=== PATIENT | female | born 1940 | race Caucasian/White ===

== ENCOUNTER → 2016-03-13 | Outpatient (CLI) | payer OTHER ==
[~2016-03-13] MED LIST: CALCTAB5 PO; DVN80 PO; METO1TAB31 PO; MULTTAB58 PO; TAMO20TA47 PO
--- NOTE | 2016-03-13 15:00 | MAMMOGRAPHY REPORT ---
UNILATERAL RIGHT DIGITAL DIAGNOSTIC MAMMOGRAM TOMOSYNTHESIS WITH CAD: 03/13/2016 CLINICAL HISTORY: 75-year-old woman presents for first evaluation of the right breast status post tr eatment for breast cancer. She is status post lumpectomy and radiation and is currently on tamoxife n. TECHNIQUE: Right CC and MLO 2-D digital and tomosynthesis images, spot magnification right CC and M L views were obtained. Current study was also evaluated with a Computer Aided Detection (CAD) gracie mathis. COMPARISON: Comparison is made to exams dated: 08/25/2015 ultrasound biopsy, 08/25/2015 mammogram, 2015 ultrasound, and 08/20/2015 mammogram - [facility]. BREAST COMPOSITION: There are scattered areas of fibroglandular density in the right breast. FINDINGS: A linear scar marker overlies the 7:00 to 8:00 axis of the right breast. There is expecte d underlying architectural distortion and associated surgical clips. There is mild diffuse right br east skin thickening and trabecular edema. There are punctate and round microcalcifications scatter ed in the right breast. However, there is an increasingly conspicuous cluster of punctate microcalc ifications in the approximate 9:00 middle to posterior right breast. When comparing back to prior s tandard mammograms, these were likely present dating back to at least 05/22/2011. However, given th e increased conspicuity, a short interval follow-up exam including spot magnification views is recom mended to ensure stability in 6 months. No other suspicious mass, architectural distortion or cluste r of microcalcifications is seen throughout the right breast. IMPRESSION: ACR-BI-RADS CATEGORY 3: PROBABLY BENIGN 1. There are expected postsurgical and posttreatment changes in the right breast. 2. There is an increasingly conspicuous 2 mm cluster of punctate microcalcifications in the 9:00 mi ddle to posterior right breast that were likely present and unchanged dating back to 2011, therefore likely benign. However, a short interval follow-up exam including repeat spot magnification views is recommended to ensure stability in 6 months. 3. Annual left mammography will be due at that time. These results and recommendations were discussed with the patient at the time of the exam. Approximately 10% of breast cancers are not detected with mammography. A negative mammographic repor t should not delay biopsy if a clinically suggestive mass is present. Kaila Godinez M.D. ay/:03/13/2016 12:11:51 Ambulance Assistant: Marianela Figueroa, [facility] letter sent: Follow Up Recommended 3 BI-RADS Code: ACR-BI-RADS Category 3: Probably Benign
== END | disposition home or self-care (01) ==
LOC: C.MAMM 09:38
PROVIDERS: ATTEND Surgery
DX: R92.0 Mammographic microcalcification found on diagnostic imaging of breast (principal); Z85.3 Personal history of malignant neoplasm of breast; Z98.890 Other specified postprocedural states

== ENCOUNTER → 2016-07-20 | Outpatient (CLI) | payer OTHER ==
[2016-07-20 13:36] VITALS: BP 127/75; PULSE 74; TEMP 36.7; O2SAT 95
--- NOTE | 2016-07-20 14:44 | Radiation Oncology Follow-Up ---
Radiation Oncology Follow-Up Date of Visit Jul 20, 2016. 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 She underwent bilateral digital screening mammogram on 08/11/2014. There was no evidence of malignancy and a one-year screening mammogram was recommended. Therefore on 08/13/2015 patient underwent a repeat bilateral digital screening mammogram. This showed a 1.3 cm mass with associated calcifications in the right lateral breast at approximately 9:00. Spot magnification views and possible breast ultrasound were recommended for further evaluation. The remainder of the left breast and the right breast were without suspicious masses , calcifications or areas of architectural distortion. On August 19 patient underwent a unilateral right digital diagnostic mammogram and targeted right breast ultrasound. This revealed a 1.0 x 1.5 cm lobulated mass by mammogram and a 9 mm mass that was hypoechoic at the 8:30 position on ultrasound which corresponded to the mammographic mass. This lesion was at the 8:30 position 5 cm in the nipple. Targeted ultrasound of the right axilla showed morphologically normal right axillary lymph nodes without evidence of adenopathy. Patient underwent an ultrasound-guided core biopsy of the right breast mass at the 8:30 position on 08/25/2015. 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 Excisional biopsy was recommended. The cells were weakly positive for estrogen receptors with approximate 10% of the cells staining and negative for progesterone receptors and HER-2/micky overexpression. The Ki-67 proliferation index was less than 5%. Case: [id number]. Patient was subsequently seen by Dr. Rogelio Felix. He discussed treatment options with the patient. She opted for a breast conserving therapy and on 09/10/2015 he performed a right partial rest ectomy and sentinel node biopsy. The sentinel node was benign without evidence of metastatic carcinoma. The right partial mastectomy specimen confirmed a poorly differentiated malignant neoplasm. The margins were free of neoplasm. The tumor measured 1.5 cm. Additional right extra superior lateral margin was taken and was negative for in situ or invasive carcinoma. Histology showed a poorly differentiated malignant neoplasm consisting of markedly atypical cells that are predominantly spindled with some malignant giant cells. No obvious epithelial component is noted and there is no in situ disease. The tumor cells were completely negative for multiple keratins, including pankeratin, cytokeratin 903, cytokeratin 5/6, cytokeratin 7 and YOSSI. There was weak but unequivocal staining of estrogen receptor and p63. 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 Evaluation of the HER-2/micky amplification by FISH was reported as negative. The margins were negative on initial lumpectomy with tumor present 0.1 cm in the superior lateral margin. Additional tissue submitted from that margin was also negative giving inadequate final negative margin. Case: [id number]. This tissue was sent for second opinion to the [place] department of pathology. 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 SP #: [id number]. The patient is recovering well from her surgery. We were asked to see her for evaluation and discussion of the potential role of adjuvant radiation. It is for this reason the patient is seen in referral today. Her case was discussed at tumor board and it was felt that she should undergo radiation therapy. She had a CT simulation was found to be a candidate for hypo-fractionation. Radiation was completed on 12/02/2015 she received 5130 cGy. Interim History She's been doing well over this past 6 months. She previously had some discomforts in the upper quadrants of the breast. These have completely resolved. She has on tamoxifen which does cause some problems with hot flashes. She is noted no masses and no change of the axilla. She's had no swelling of her arm. She is up-to-date on mammography. She had a mammogram . This showed expected postsurgical and posttreatment changes in the right breast. There is an increased conspicuous 2 mm cluster of punctate microcalcifications in the 9:00 middle to posterior right breast that are likely present and unchanged dating back to 2011, therefore likely benign. However short-term follow-up examination including repeat spot magnification views is recommended to ensure stability in 6 months. She is on tamoxifen. Her main side effect is hot flashes. Dr. Felix advised that she follow with gynecology. She will continue to see the steel heater on a yearly basis. Allergies Coded Allergies: No Known Allergies (Unverified , 07/01/15) Home Medications Scheduled Calcium (Caltrate), 600 MG PO DAILY Metoprolol Succinate (Toprol Xl), 25 MG PO DAILY Multiple Vitamin (Multivitamin), 1 TAB PO DAILY Tamoxifen (Nolvadex), 20 MG PO DAILY Valsartan (Diovan), 1 TAB PO DAILY Review of Systems Gastrointestinal: Symptoms: WNL Oral: Symptoms: No Problems Respiratory: Symptoms: WNL Urinary: Symptoms: WNL Skin: Symptoms: No Problems Breast: Right Upper Arm Measurement: 28.4 Right Mid Arm Measurement: 23.5 Right Wrist Measurement: 14.5 Left Upper Arm Measurement: 31.0 Left Mid Arm Measurement: 25.8 Left Wrist Measurement: 16.0 Arm Dominence: Right Physical Exam Vital Signs Date Time Temp Pulse Resp B/P (MAP) Pulse Ox O2 Delivery O2 Flow Rate FiO2 07/20/16 13:36 36.7 74 16 127/75 95 Fatigue: None General Appearance: no apparent distress Eyes: normal inspection, EOMI ENT: normal ENT inspection, hearing grossly normal Neck: no adenopathy, thyroid normal Respiratory/Chest: lungs clear, no respiratory distress, no accessory muscle use Breast: Breast examination reveals well-healed incisions of the right breast. There is slight hyperpigmentation. There is very mild edema in the lower quadrants of the breast. There are no masses or tenderness and no axillary adenopathy. She has no skin retractions or nipple changes. Using the [place] score cosmesis she has a good outcome. Left breast shows no masses or tenderness no axillary adenopathy. Cardiovascular: regular rate, rhythm, no gallop, no murmur Abdomen: non tender, soft Extremities: no pedal edema Neurologic/Psychiatric: no motor/sensory deficits, alert, normal mood/affect Skin: warm/dry Additional Studies Patient: DEE DEE REMY N [facility] Rec: [id number] Address1: [address] REMY Address2: Acct ID: [id number] Date: 1940 Sex: F Ref Phy: Att Phy: Rogelio Felix M.D. Mabel Phy: Olu Martinez M.D. Inter Phy: Kaila Godinez MD [facility] Zip: [place] [address] SC: C.MAMM Report #: [id number] Bottle Hop: ALEXI Diagnosis: 6 MONTH F/U S/P BREAST CA RIGHT/BASELINE Service Date: 03/13/16 MNE: [id number] Ordering Dr: Rogelio Felix M.D. CC: Rogelio Felix M.D. CONF: DICTATED BY: Kaila Godinez MD MAMMOGRAPHY REPORT UNILATERAL RIGHT DIGITAL DIAGNOSTIC MAMMOGRAM TOMOSYNTHESIS WITH CAD: 03/13/2016 CLINICAL HISTORY: 75-year-old woman presents for first evaluation of the right breast status post treatment for breast cancer. She is status post lumpectomy and radiation and is currently on tamoxifen. TECHNIQUE: Right CC and MLO 2-D digital and tomosynthesis images, spot magnification right CC and ML views were obtained. Current study was also evaluated with a Computer Aided Detection (CAD) system. COMPARISON: Comparison is made to exams dated: 08/25/2015 ultrasound biopsy, 2015 mammogram, 08/20/2015 ultrasound, and 08/20/2015 mammogram - [facility]. BREAST COMPOSITION: There are scattered areas of fibroglandular density in the right breast. FINDINGS: A linear scar marker overlies the 7:00 to 8:00 axis of the right breast. There is expected underlying architectural distortion and associated surgical clips. There is mild diffuse right breast skin thickening and trabecular edema. There are punctate and round microcalcifications scattered in the right breast. However, there is an increasingly conspicuous cluster of punctate microcalcifications in the approximate 9:00 middle to posterior right breast. When comparing back to prior standard mammograms, these were likely present dating back to at least 05/22/2011. However, given the increased conspicuity, a short interval follow-up exam including spot magnification views is recommended to ensure stability in 6 months. No other suspicious mass, architectural distortion or cluster of microcalcifications is seen throughout the right breast. IMPRESSION: ACR-BI-RADS CATEGORY 3: PROBABLY BENIGN 1. There are expected postsurgical and posttreatment changes in the right breast. 2. There is an increasingly conspicuous 2 mm cluster of punctate microcalcifications in the 9:00 middle to posterior right breast that were likely present and unchanged dating back to 2011, therefore likely benign. However, a short interval follow-up exam including repeat spot magnification views is recommended to ensure stability in 6 months. 3. Annual left mammography will be due at that time. These results and recommendations were discussed with the patient at the time of the exam. Approximately 10% of breast cancers are not detected with mammography. A negative mammographic report should not delay biopsy if a clinically suggestive mass is present. Kaila Godinez M.D. ay/:03/13/2016 12:11:51 Waiter/Waitress Tavern: Marianela Figueroa, [facility] letter sent: Follow Up Recommended 3 BI-RADS Code: ACR-BI-RADS Category 3: Probably Benign Dictated by: Kaila Godinez MD Signed by: Kaila Godinez MD Assessment & Plan Plan: She is scheduled for next mammogram 08/16/2016. Continue follow-up with Dr. Felix and Dr. Martinez. She continues on the tamoxifen. She'll continue yearly visits with a steel heater. I suggested the use of Vitamin E for her hot flashes. 400 international units daily. We asked her to return to our office in 1 year. She may call if she has any questions or concerns in the interim. Total Time In Follow-Up I spent 20 minutes speaking to the patient and performing examination. I spent 15 minutes reviewing information in completing this note. Copy To Rogelio Felix M.D.; Olu Martinez M.D. Problem Qualifiers (1) Breast cancer of lower-inner quadrant of right female breast: Estrogen receptor status: positive Qualified Codes: C50.311 - Malignant neoplasm of lower-inner quadrant of right female breast; Z17.0 - Estrogen receptor positive status [ER+]
== END | disposition home or self-care (01) ==
LOC: C.ONC 13:25
PROVIDERS: ATTEND Physician Assistant Medical
DX: Z08 Encounter for follow-up examination after completed treatment for malignant neoplasm (principal); Z92.3 Personal history of irradiation; Z85.3 Personal history of malignant neoplasm of breast

== ENCOUNTER → 2016-08-16 | Outpatient (CLI) | payer OTHER ==
--- NOTE | 2016-08-16 13:05 | MAMMOGRAPHY REPORT ---
BILATERAL DIGITAL DIAGNOSTIC MAMMOGRAM TOMOSYNTHESIS WITH CAD: 08/16/2016 CLINICAL HISTORY: 75-year-old woman presents 1 year after treatment for right breast cancer. Bilater al mammographic evaluation. Also follow-up of a grouping of punctate microcalcifications in the appr oximate 9:00 middle to posterior right breast. TECHNIQUE: Bilateral CC and MLO 2-D digital and synthesis images, spot magnification right CC and ML views were obtained. Current study was also evaluated with a Computer Aided Detection (CAD) system. COMPARISON: Comparison is made to exams dated: 03/13/2016 mammogram, 08/25/2015 ultrasound biopsy, 2015 mammogram, 08/20/2015 ultrasound, 08/20/2015 mammogram, and 08/13/2015 mammogram - [facility]. BREAST COMPOSITION: There are scattered areas of fibroglandular density in both breasts. FINDINGS: There is mild diffuse skin thickening and trabecular edema of the right breast. Expected a rchitectural distortion and associated surgical clips in the lower outer right breast at the site of prior lumpectomy. The small grouping of punctate microcalcifications in the middle to posterior 9:00 right breast are somewhat less conspicuous comparing to the prior spot magnification ML view but lik ramon unchanged. There are no new microcalcifications in that area. These microcalcifications are mos t likely benign but repeat attention at another 6 month follow-up diagnostic mammogram is recommended . No other new suspicious mass, unexpected architectural distortion or new microcalcifications are s een bilaterally. IMPRESSION: ACR-BI-RADS CATEGORY 3: PROBABLY BENIGN Expected post-therapeutic changes in the right breast, without definite mammographic evidence of sofia gnancy bilaterally. Another six-month follow-up diagnostic right mammogram is recommended to ensure stability of a probably benign cluster of punctate microcalcifications in the 9:00 no to posterior ri ght breast and also to ensure stability after treatment. Recommend routine mammography of the left b reast in 1 year. These results and recommendations were discussed with the patient at the time of the exam. Approximately 10% of breast cancers are not detected with mammography. A negative mammographic report should not delay biopsy if a clinically suggestive mass is present. Kaila Godinez M.D. ay/:08/16/2016 11:38:31 Software Test Specialist: Jaz BROWN(R)(M), [facility] letter sent: Follow Up Recommended 3 BI-RADS Code: ACR-BI-RADS Category 3: Probably Benign
== END | disposition home or self-care (01) ==
LOC: C.MAMM 10:28
PROVIDERS: ATTEND Surgery
DX: Z12.31 Encounter for screening mammogram for malignant neoplasm of breast (principal); R92.0 Mammographic microcalcification found on diagnostic imaging of breast; Z85.3 Personal history of malignant neoplasm of breast; Z08 Encounter for follow-up examination after completed treatment for malignant neoplasm

== ENCOUNTER → 2016-09-12 | Outpatient (CLI) | payer OTHER ==
--- NOTE | 2016-09-12 17:49 | DIAGNOSTIC IMAGING REPORT ---
RIGHT FOOT MIN 3 VIEWS ROUTINE CLINICAL HISTORY: 76 years-old Female presenting with dropped weight on right foot 5 days ago, bruising over right toes, redness over great toe. TECHNIQUE: Frontal, oblique, and lateral views of the right foot were obtained. COMPARISON: None. FINDINGS: Comminuted fracture of the diaphysis of the distal phalanx of the great toe. This does not appear to extend into the interphalangeal joint. Slight lateral subluxation of the proximal phalanx of the first toe relative to the first metatarsal. No other evidence of acute fracture. IMPRESSION: 1. Extra-articular comminuted fracture of the distal phalanx of the great toe. 2. Slight subluxation of the first metatarsophalangeal joint, which may be acute or chronic. Electronically signed by: Andres Kirkland M.D. 09/12/2016 5:48 PM Dictated Date/Time: 09/12/2016 5:45 PM
== END | disposition home or self-care (01) ==
LOC: C.RAD 17:08
PROVIDERS: ATTEND Physician Assistant Medical
DX: S92.421A Displaced fracture of distal phalanx of right great toe, initial encounter for closed fracture (principal); X58.XXXA Exposure to other specified factors, initial encounter

== ENCOUNTER → 2016-10-20 | Outpatient (CLI) | payer OTHER ==
[2016-10-20 12:16] LABS: BASO % 0.4 %; BASO ABS # 0.02 K/uL (0-0.2); COMPLETE YES; EOS % 0.8 %; HEMATOCRIT 44.6 % (37-47); IG% 0.4 %; LYMPH % 31.4 %; MEAN CELL VOLUME 96.1 fL (80-100); MEAN CORPUSCULAR HGB CONC 31.2 g/dl (32-36); MEAN PLATELET VOLUME 10.7 fL (7.4-10.4); PLATELET COUNT 273 K/uL (130-400); RED BLOOD COUNT 4.64 M/uL (4.2-5.4)
[2016-10-20 12:40] LABS: ALT/SGPT 50 U/L (12-78); AST/SGOT 26 U/L (15-37); BLOOD UREA NITROGEN 18 mg/dl (7-18); CALCIUM 9.1 mg/dl (8.5-10.1); CARBON DIOXIDE 27 mmol/L (21-32); CHLORIDE 106 mmol/L (98-107); CHOLESTEROL 193 mg/dl (0-200); CREATININE 0.81 mg/dl (0.60-1.20); GLUCOSE 83 mg/dl (70-99); POTASSIUM 4.4 mmol/L (3.5-5.1); SODIUM 139 mmol/L (136-145)
[2016-10-20 12:43] LABS: ALKALINE PHOSPHATASE 36 U/L (45-117); CHOLESTEROL/HDL RATIO 3.4; HDL CHOLESTEROL 57 mg/dl; LDL CHOLESTEROL CALCULATED 96 mg/dl; TRIGLYCERIDES 200 mg/dl (0-150); VERY LOW DENSITY LIPOPROT CALC 40 mg/dl
== END | disposition home or self-care (01) ==
LOC: C.LABBFT 09:45
PROVIDERS: ATTEND Internal Medicine
DX: I10 Essential (primary) hypertension (principal); E78.00 Pure hypercholesterolemia, unspecified

== ENCOUNTER → 2016-11-22 | Outpatient (CLI) | payer OTHER | END | disposition home or self-care (01) | LOC: C.RDSM 10:39 | PROVIDERS: ATTEND Orthopaedic Surgery Sports Medicine | DX: S92.424D Nondisplaced fracture of distal phalanx of right great toe, subsequent encounter for fracture with routine healing (principal); X58.XXXD Exposure to other specified factors, subsequent encounter ==

== ENCOUNTER → 2017-01-15 | Outpatient (CLI) | payer OTHER ==
[~2017-01-15] MED LIST changes: +METO-478 PO; -METO1TAB31 PO; -TAMO20TA47 PO; +TAMO20TA9 PO
== END | disposition home or self-care (01) ==
LOC: C.PAPS 17:46
PROVIDERS: ATTEND Obstetrics & Gynecology
DX: Z12.4 Encounter for screening for malignant neoplasm of cervix (principal)

== ENCOUNTER → 2017-02-15 | Outpatient (CLI) | payer OTHER ==
--- NOTE | 2017-02-15 13:46 | MAMMOGRAPHY REPORT ---
UNILATERAL RIGHT DIGITAL DIAGNOSTIC MAMMOGRAM TOMOSYNTHESIS WITH CAD: 02/15/2017 CLINICAL HISTORY: History right breast cancer status post lumpectomy August 2015 and radiation therapy. The patient reports no current complaints. TECHNIQUE: Breast tomosynthesis in addition to standard 2D mammography was performed. Current study was also evaluated with a Computer Aided Detection (CAD) system. Right CC and MLO 2-D and tomosynthe sis images and spot magnification right cc and ML views were obtained. COMPARISON: Comparison is made to exams dated: 08/16/2016 mammogram, 03/13/2016 mammogram, 08/25/2015 ma mmogram, 08/20/2015 ultrasound, 08/20/2015 mammogram, and 08/13/2015 mammogram - [facility]. BREAST COMPOSITION: There are scattered areas of fibroglandular density in the right breast. FINDINGS: Again noted are post surgical changes in the right central breast from prior lumpectomy, in cluding stable density, architectural distortion, and surgical clips at the lumpectomy bed. Spot mag nification views of the lumpectomy bed demonstrate a few scattered punctate benign-appearing calcific ations. The small 1 mm cluster of punctate benign-appearing calcifications in the right upper outer quadrant is stable on spot magnification views dating back to February 2016 and is stable on full fiel d views dating back to the 2007 exam; the long-term stability confirms benignity. The remainder of t he right breast is stable compared to prior exams, without suspicious masses, calcifications, or area s of architectural distortion noted. IMPRESSION: ACR-BI-RADS CATEGORY 3: PROBABLY BENIGN Stable posttreatment changes in the right breast, without mammographic evidence of malignancy in the right breast. Recommend bilateral diagnostic tomosynthesis mammograms in 6 months, to reevaluate the right breast posttreatment changes and for routine mammography of the left breast. The patient has been verbally notified of the results. Approximately 10% of breast cancers are not detected with mammography. A negative mammographic report should not delay biopsy if a clinically suggestive mass is present. Bernarda Olmstead M.D. /:02/15/2017 11:31:54 Buyers' Agent: Nikki BROWN(Camacho)(Pietro), [facility] letter sent: Personal History 3 BI-RADS Code: ACR-BI-RADS Category 3: Probably Benign
== END | disposition home or self-care (01) ==
LOC: C.MAMM 10:57
PROVIDERS: ATTEND Surgery
DX: Z85.3 Personal history of malignant neoplasm of breast (principal); Z08 Encounter for follow-up examination after completed treatment for malignant neoplasm; Z92.3 Personal history of irradiation

== ENCOUNTER → 2017-02-22 | Outpatient (CLI) | payer OTHER | END | disposition home or self-care (01) | LOC: C.RDSM 10:52 | PROVIDERS: ATTEND Orthopaedic Surgery Sports Medicine | DX: Z09 Encounter for follow-up examination after completed treatment for conditions other than malignant neoplasm (principal) ==

== ENCOUNTER 2021-07-18 07:03 | Observation (INO) ==
--- NOTE | 2021-07-18 07:25 | Emergency Department Note ---
Impression & Plan Atypical chest pain, Hypertension ED Provider Note NAME: DEE DEE REMY AGE: 80 SEX: F : 1940 ARRIVES VIA: Walk-In INFORMANT: [Patient][, ] ED PROVIDER(S): [Pedro Pablo Gonzalez MD] Chief Complaint: Chest and arm pain HPI: Patient presents due to concern for left-sided chest discomfort and associated arm pain. Patient states this began around 530 this morning and she awoke the symptoms from sleep. Patient describes it as a 2 out of 10 and does not describe it as pain but a discomfort. The patient also has discomfort in the left upper extremity. The patient is right-hand dominant. Patient denies any shortness of breath. The patient did have a recent trip to [place] via car for her granddaughters graduation from medical school. She is to attend [employer]. The patient states that she has no prior history of heart or lung disease. Patient states that occasionally she feels as though she needs to take a big deep breath. The patient denies any smoking history. No history of DVT or PE. No recent hospitalizations or surgeries denies any calf pain or leg swelling. The patient did take a baby aspirin this morning after her symptoms began but does not know if this helped or improved her symptoms at all. Patient denies any overt exertional symptoms vomiting or diaphoresis. The patient did have mild upset stomach. ROS: See HPI for pertinent positives and negatives. A total of 10 systems were reviewed and otherwise negative. Past medical history: See below Surgical history: See below Social history: See below Physical Exam: GENERAL: NAD, [wearing a mask,] non-toxic. EYE EXAM: Normal conjunctiva. PERRL, no anisocoria and EOM's grossly intact w/o pain. [OROPHARYNX: Moist mucus membranes. Grossly normal dentition. ] NECK: Supple, no nuchal rigidity, no adenopathy, non-tender. No signs of meningismus. Chest: No reproducible chest wall pain LUNGS: Clear to auscultation. Normal chest wall mechanics. HEART: NSR, no MRG. ABDOMEN: Abdomen soft, non-tender, normo-active bowel sounds, no masses, no rebound or guarding. BACK: No CVA TTP. SKIN: No rashes and no bruising. UPPER EXTREMITIES: Upper extremities are grossly normal. No reproducible left upper extremity pain or deformity, compartments are soft neurovascular intact distally. LOWER EXTREMITIES: Grossly normal, no edema. NEURO EXAM: A&O x3, cranial nerves II-XII grossly intact, normal speech, moves a ll 4 extremities on command w/o issue. No sensory deficits Differential diagnoses: Cardiac ischemia, aortic dissection, pulmonary embolism, pneumothorax, pneumonia, pericarditis, myocarditis, esophageal rupture, GERD, cholecystitis, pancreatitis, musculoskeletal, as well as other pathologies. Course: Patient was seen and evaluated the bedside. Full history physical exam was performed. [EKG interpreted by me] Sinus rhythm, rate of 74, normal intervals, normal axis, Q waves in 3 and aVF, no obvious ST elevations. Imaging Studies: See Below [Cardiac monitoring: An order was placed for continuous cardiac monitoring. The monitor shows a rate of 77 with sinus rhythm.] MDM: Patient was seen due to concern for chest pain and arm pain. Blood work was obtained along with an EKG troponin and chest x-ray. The patient was treated symptomatically with the rest of a full dose aspirin nitro and Tylenol help avoid headache. Patient blood pressure was elevated and ordered home dose metoprolol. Blood work shows normal white count H&H and platelet count. Kidney function is unremarkable. Patient's initial troponin is negative with no obvious EKG changes. Heart score of 4 deemed moderate risk. After further discussion the patient the patient is agreeable to further observation and treatment. I did speak with the on-call hospitalist Dr. Roberts and the patient was admitted to the medicine service. Of note the patient's repeat troponin was elevated after the patient had been admitted. Past Med/Surg History Medical History (Updated 07/18/21 @ 13:47 by Pedro Pablo Gonzalez MD) Breast cancer of lower-inner quadrant of right female breast (08/25/15) Cataract Cervical polyp Dermatitis Fall at home Foot injury Herpes zoster Hypercholesterolemia Hypertension Mammogram abnormal Memory loss Oral ulcer Seborrheic dermatitis of scalp Thickened endometrium Urinary tract infection Surgical History History of breast biopsy History of cataract surgery History of colonoscopy History of dilatation and curettage D&C, Hysteroscopy, Polypectomy using Myosure (cervical and endometrial polyp) History of partial mastectomy of right breast History of tonsillectomy History of tooth extraction Family History Denies family history of Ovarian cancer Prostate cancer Myocardial infarction Breast cancer Colorectal cancer Social History Smoking Status: Never smoker Second Hand Exposure: No; Do You Dip or Chew Tobacco: No; Tobacco Cessation Education Requested by Patient: No Hx Alcohol Use: No Hx Substance Use: No Preferred Language: Maltese Communication Ability: Effective Visual Impairment: No Limitations Hearing Ability: Normal 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: No Beliefs That Will Affect Care: None marital status: Current Living Situation: Spouse Current Living Situation Comment: caregiver for , next door to son current occupational status: retired Other Information That Helps Us Care for You: No Feels Safe at Home: Yes Safety Concerns: Feels Safe At This Time Childhood Exposure to Second-Hand Smoke: No Dental Care, Regularly: Yes Physical Activity Frequency: 1-2 Times per Week Physical Activity Frequency Comment: walking, 30 minutes Seatbelt Use: always Sunscreen Use: No Assistive Devices: Glasses Allergies Allergies Allergy/AdvReac Type Severity Reaction Status Date / Time No Known Allergies Allergy Verified 12/15/20 07:37 Home Meds Home Medications Medication Instructions Recorded Confirmed multivitamin (Multiple Vitamins) 1 tab PO QAM 12/30/17 12/15/20 calcium carbonate 600 mg-vitamin 1 tab PO DAILY tab 11/21/18 12/15/20 D3 5 mcg (200 unit) tablet anastrozole 1 mg tablet 1 mg PO DAILY 07/17/19 12/15/20 Previous Rx's Medication Instructions Recorded metoprolol tartrate 25 mg tablet 25 mg PO DAILY #90 tab 06/07/20 losartan 50 mg tablet 50 mg PO DAILY #90 tab 01/25/21 Results & Data (ED) Vital Signs Vital Signs - 24 hr 07/18/21 07:18 07/18/21 07:27 07/18/21 07:30 Temperature 36.9 C Temperature Source Oral Pulse Rate 76 76 71 Pulse Rate [Left] Pulse Rate from SpO2 Sensor 76 71 Pulse Rhythm [Left] Pulse Strength [Left] Respiratory Rate 20 17 19 Respiratory Effort / Characteristics Non-Labored Spontaneous Respiratory Depth Normal Respiratory Pattern Regular Blood Pressure 183/92 H Blood Pressure [Left Arm] Blood Pressure Mean 122 Blood Pressure Mean [Left Arm] Blood Pressure Position [Left Arm] Pulse Oximetry 99 98 100 Oxygen Delivery Method Room Air Sepsis Recent Fever Within 48 Hours No Sepsis New/Unexplained Change in Mental Status N/A Sepsis Action Taken by Nursing No Action Required 07/18/21 08:00 07/18/21 08:30 07/18/21 09:00 Temperature Temperature Source Pulse Rate 67 66 66 Pulse Rate [Left] Pulse Rate from SpO2 Sensor 67 66 Pulse Rhythm [Left] Pulse Strength [Left] Respiratory Rate 14 19 25 H Respiratory Effort / Characteristics Respiratory Depth Respiratory Pattern Blood Pressure 171/88 H 192/74 H 187/83 H Blood Pressure [Left Arm] Blood Pressure Mean 115 113 117 Blood Pressure Mean [Left Arm] Blood Pressure Position [Left Arm] Pulse Oximetry 99 97 Oxygen Delivery Method Sepsis Recent Fever Within 48 Hours Sepsis New/Unexplained Change in Mental Status Sepsis Action Taken by Nursing 07/18/21 09:18 07/18/21 09:30 07/18/21 10:00 Temperature Temperature Source Pulse Rate 70 69 69 Pulse Rate [Left] 68 Pulse Rate from SpO2 Sensor 69 70 68 Pulse Rhythm [Left] Regular Pulse Strength [Left] Normal Respiratory Rate 20 19 21 Respiratory Effort / Characteristics Non-Labored Respiratory Depth Normal Respiratory Pattern Regular Blood Pressure 188/84 H 162/82 H 165/82 H Blood Pressure [Left Arm] 188/84 H Blood Pressure Mean 118 108 109 Blood Pressure Mean [Left Arm] 118 Blood Pressure Position [Left Arm] Lying Pulse Oximetry 99 94 94 Oxygen Delivery Method Room Air Sepsis Recent Fever Within 48 Hours Sepsis New/Unexplained Change in Mental Status Sepsis Action Taken by Nursing 07/18/21 10:30 Temperature Temperature Source Pulse Rate 67 Pulse Rate [Left] Pulse Rate from SpO2 Sensor 67 Pulse Rhythm [Left] Pulse Strength [Left] Respiratory Rate 20 Respiratory Effort / Characteristics Respiratory Depth Respiratory Pattern Blood Pressure 154/81 H Blood Pressure [Left Arm] Blood Pressure Mean 105 Blood Pressure Mean [Left Arm] Blood Pressure Position [Left Arm] Pulse Oximetry 96 Oxygen Delivery Method Sepsis Recent Fever Within 48 Hours Sepsis New/Unexplained Change in Mental Status Sepsis Action Taken by Intermediate Medications Current Medication List: was personally reviewed by me Laboratory Data Attestation: I reviewed the patient's lab results. Result diagrams: 07/18/21 07:55 07/18/21 08:53 Lab Results 07/18/21 07/18/21 07/18/21 Range/Units 07:55 07:55 07:55 WBC 7.36 (4.8-10.8) K/uL RBC 4.47 (4.2-5.4) M/uL Hgb 13.6 (12.0-16.0) g/dL Hct 42.1 (37-47) % MCV 94.2 (80-100) fL MCH 30.4 (25-34) pg MCHC 32.3 (32-36) g/dL RDW Std Deviation 42.6 (36.4-46.3) fL RDW Coeff of [place] 12.4 (11.5-14.5) % Plt Count 295 (130-400) K/uL MPV 10.5 H (7.4-10.4) fL Immature Gran % (Auto) 0.4 % Neut % (Auto) 72.9 % Lymph % (Auto) 16.8 % [place] % (Auto) 9.1 % Eos % (Auto) 0.7 % Baso % (Auto) 0.1 % Neut # (Auto) 5.36 (1.4-6.5) K/uL Lymph # (Auto) 1.24 (1.2-3.4) K/uL [place] # (Auto) 0.67 H (0.11-0.59) K/uL Eos # (Auto) 0.05 (0-0.5) K/uL Baso # (Auto) 0.01 (0-0.2) K/uL Immature Gran # (Auto) 0.03 H (0.00-0.02) K/uL ESR (0-30) mm/hr Sodium 138 (136-145) mmol/L Potassium TNP Chloride 106 (98-107) mmol/L Carbon Dioxide 24 (21-32) mmol/L Anion Gap 8 (3-11) BUN 15 (6-23) mg/dl Creatinine 0.80 (0.6-1.2) mg/dl Est Cr Clr Drug Dosing 49.0 ml/min Est GFR ( Amer) 80.7 ml/min Est GFR (Non-Af Amer) 69.6 ml/min BUN/Creatinine Ratio 18.8 (10-20) Glucose 102 H (70-99(Fasting)) mg/dl Calcium 9.5 (8.5-10.1) mg/dl Magnesium 2.0 (1.7-2.4) mg/dl Total Bilirubin 0.6 (0.2-1.0) mg/dl AST TNP ALT 15 (7-52) U/L Alkaline Phosphatase 40 (34-104) U/L Troponin I High Sens 5.7 (0-14) pg/ml C-Reactive Protein (0-0.5) mg/dl B-Natriuretic Peptide (0-100) pg/ml Total Protein 6.9 (6.0-8.3) gm/dl Albumin 4.2 (3.4-5.0) gm/dl Globulin 2.7 (2.5-4.0) gm/dl Albumin/Globulin Ratio 1.6 (0.9-2) Lipase 36 (11-82) U/L SARS-CoV-2, RNA, NAAT (NEGATIVE) 07/18/21 07/18/21 07/18/21 Range/Units 07:55 08:30 08:53 WBC (4.8-10.8) K/uL RBC (4.2-5.4) M/uL Hgb (12.0-16.0) g/dL Hct (37-47) % MCV (80-100) fL MCH (25-34) pg MCHC (32-36) g/dL RDW Std Deviation (36.4-46.3) fL RDW Coeff of [place] (11.5-14.5) % Plt Count (130-400) K/uL MPV (7.4-10.4) fL Immature Gran % (Auto) % Neut % (Auto) % Lymph % (Auto) % [place] % (Auto) % Eos % (Auto) % Baso % (Auto) % Neut # (Auto) (1.4-6.5) K/uL Lymph # (Auto) (1.2-3.4) K/uL [place] # (Auto) (0.11-0.59) K/uL Eos # (Auto) (0-0.5) K/uL Baso # (Auto) (0-0.2) K/uL Immature Gran # (Auto) (0.00-0.02) K/uL ESR 9 (0-30) mm/hr Sodium (136-145) mmol/L Potassium 4.5 Chloride (98-107) mmol/L Carbon Dioxide (21-32) mmol/L Anion Gap (3-11) BUN (6-23) mg/dl Creatinine (0.6-1.2) mg/dl Est Cr Clr Drug Dosing ml/min Est GFR ( Amer) ml/min Est GFR (Non-Af Amer) ml/min BUN/Creatinine Ratio (10-20) Glucose (70-99(Fasting)) mg/dl Calcium (8.5-10.1) mg/dl Magnesium (1.7-2.4) mg/dl Total Bilirubin (0.2-1.0) mg/dl AST 21 ALT (7-52) U/L Alkaline Phosphatase (34-104) U/L Troponin I High Sens (0-14) pg/ml C-Reactive Protein (0-0.5) mg/dl B-Natriuretic Peptide (0-100) pg/ml Total Protein (6.0-8.3) gm/dl Albumin (3.4-5.0) gm/dl Globulin (2.5-4.0) gm/dl Albumin/Globulin Ratio (0.9-2) Lipase (11-82) U/L SARS-CoV-2, RNA, NAAT NEGATIVE (NEGATIVE) 07/18/21 07/18/21 Range/Units 10:17 10:17 WBC (4.8-10.8) K/uL RBC (4.2-5.4) M/uL Hgb (12.0-16.0) g/dL Hct (37-47) % MCV (80-100) fL MCH (25-34) pg MCHC (32-36) g/dL RDW Std Deviation (36.4-46.3) fL RDW Coeff of [place] (11.5-14.5) % Plt Count (130-400) K/uL MPV (7.4-10.4) fL Immature Gran % (Auto) % Neut % (Auto) % Lymph % (Auto) % [place] % (Auto) % Eos % (Auto) % Baso % (Auto) % Neut # (Auto) (1.4-6.5) K/uL Lymph # (Auto) (1.2-3.4) K/uL [place] # (Auto) (0.11-0.59) K/uL Eos # (Auto) (0-0.5) K/uL Baso # (Auto) (0-0.2) K/uL Immature Gran # (Auto) (0.00-0.02) K/uL ESR (0-30) mm/hr Sodium (136-145) mmol/L Potassium Chloride (98-107) mmol/L Carbon Dioxide (21-32) mmol/L Anion Gap (3-11) BUN (6-23) mg/dl Creatinine (0.6-1.2) mg/dl Est Cr Clr Drug Dosing ml/min Est GFR ( Amer) ml/min Est GFR (Non-Af Amer) ml/min BUN/Creatinine Ratio (10-20) Glucose (70-99(Fasting)) mg/dl Calcium (8.5-10.1) mg/dl Magnesium (1.7-2.4) mg/dl Total Bilirubin (0.2-1.0) mg/dl AST ALT (7-52) U/L Alkaline Phosphatase (34-104) U/L Troponin I High Sens 37.3 H D (0-14) pg/ml C-Reactive Protein < 0.50 (0-0.5) mg/dl B-Natriuretic Peptide 22 (0-100) pg/ml Total Protein (6.0-8.3) gm/dl Albumin (3.4-5.0) gm/dl Globulin (2.5-4.0) gm/dl Albumin/Globulin Ratio (0.9-2) Lipase (11-82) U/L SARS-CoV-2, RNA, NAAT (NEGATIVE) Administered Medications Anastrozole (Anastrozole 1 Mg Tab) 1 mg PO DAILY PHIL Stop: 08/17/21 11:29 Last Admin: 07/18/21 13:18 Dose: 1 mg Documented by: [id number] Cosigned by: [id number] Enoxaparin Sodium (Enoxaparin Inj 40 Mg/0.4 Ml Syr) 40 mg SQ QAM PHIL Stop: 08/17/21 11:15 Last Admin: 07/18/21 12:42 Dose: 40 mg Documented by: [id number] Multivitamins/Minerals (Calcium 600mg + Vit D 400 Iu Tab) 1 tab PO DAILY PHIL Stop: 08/17/21 11:29 Last Admin: 07/18/21 13:18 Dose: 1 tab Documented by: [id number] Discontinued Medications Acetaminophen (Acetaminophen 325 Mg Tab) 650 mg PO NOW STA Stop: 07/18/21 07:32 Last Admin: 07/18/21 08:27 Dose: 650 mg Documented by: [id number] Aspirin (Aspirin Chew 324 Mg) 243 mg PO NOW STA Stop: 07/18/21 07:32 Last Admin: 07/18/21 08:31 Dose: 243 mg Documented by: [id number] Sodium Chloride (Nss) 500 mls @ 999 mls/hr IV .Q31M STA Stop: 07/18/21 08:01 Last Infusion: 07/18/21 09:27 Dose: 0 mls/hr Documented by: [id number] Admin: 07/18/21 08:31 Dose: 999 mls/hr Documented by: [id number] Metoprolol Tartrate (Metoprolol Tartrate 25 Mg Tab) 25 mg PO NOW STA Stop: 07/18/21 09:47 Last Admin: 07/18/21 11:03 Dose: 25 mg Documented by: [id number] Nitroglycerin (Nitroglycerin Sl 0.4 Mg/Tab Tab) 0.4 mg SL UD PRN PRN Reason: Chest Pain Stop: 08/17/21 07:30 Last Admin: 07/18/21 09:19 Dose: 0.4 mg Documented by: [id number] Imaging Data Radiologist's Impression: Chest X-Ray 07/18/21 07:31 XR chest 1V portable CLINICAL HISTORY: Atypical chest pain TECHNIQUE: Single frontal radiograph of the chest was obtained. Comparison: Comparison is made to chest radiograph 08/28/2020 FINDINGS: No lines and tubes are seen. Calcified aortic knob is seen. The lungs are clear. No evidence of pleural effusion or pneumothorax. IMPRESSION: No acute chest disease. ACT 112: Negative or not required by law. Electronically signed by: Moisés Michelle M.D. 07/18/2021 8:02 AM Discharge Plan Visit Data Chief Complaint: Chest Pain Stated Complaint: CHEST PAIN,PAIN GOING DOWN LEFT ARM ED Provider: Pedro Pablo Gonzalez Discharge Problem: Atypical chest pain, Hypertension Patient Disposition: Admitted As Inpatient Discharge Instructions Interventions: ED Discharge Assessment Last Done: 07/18/21 10:55
[2021-07-18] MEDS ORDERED: ACETAMINOPHEN 325 MG TAB PO STA (07:31)
[2021-07-18] MEDS ORDERED: ASPIRIN CHEW 324 MG PO STA (07:31)
[2021-07-18] MEDS ORDERED: SODIUM CHLORIDE 0.9% 500 ML IV STA (07:31)
[2021-07-18] MEDS ORDERED: NITROGLYCERIN SL 0.4 MG/TAB TAB SL PRN ×2 (07:31→11:16)
--- NOTE | 2021-07-18 08:05 | XRay Report ---
XR chest 1V portable CLINICAL HISTORY: Atypical chest pain TECHNIQUE: Single frontal radiograph of the chest was obtained. Comparison: Comparison is made to chest radiograph 08/28/2020 FINDINGS: No lines and tubes are seen. Calcified aortic knob is seen. The lungs are clear. No evidence of pleur al effusion or pneumothorax. IMPRESSION: No acute chest disease. ACT 112: Negative or not required by law. Electronically signed by: Moisés Michelle M.D. 07/18/2021 8:02 AM
[2021-07-18 08:09] LABS: Basophils # (auto) 0.01 K/uL (0-0.2); Basophils % (auto) 0.1 %; Eosinophils # (auto) 0.05 K/uL (0-0.5); Eosinophils % (auto) 0.7 %; Hematocrit (blood only) 42.1 % (37-47); Hemoglobin 13.6 g/dL (12.0-16.0); Immature Granulocytes # (auto) 0.03 K/uL (0.00-0.02); Immature Granulocytes % (auto) 0.4 %; Lymphocytes # (auto) 1.24 K/uL (1.2-3.4); Lymphocytes % (auto) 16.8 %; Mean Corpuscular Hemoglobin 30.4 pg (25-34); Mean Corpuscular Hgb Conc 32.3 g/dL (32-36); Mean Corpuscular Volume 94.2 fL (80-100); Mean Platelet Volume 10.5 fL (7.4-10.4); Monocytes # (auto) 0.67 K/uL (0.11-0.59); Monocytes % (auto) 9.1 %; Neutrophils # (auto) 5.36 K/uL (1.4-6.5); Neutrophils % (auto) 72.9 %; Platelet Count 295 K/uL (130-400); RDW Coefficient of Variation 12.4 % (11.5-14.5); RDW Standard Deviation 42.6 fL (36.4-46.3); Red Blood Count 4.47 M/uL (4.2-5.4); White Blood Count 7.36 K/uL (4.8-10.8)
[2021-07-18 08:33] LABS: Alanine Aminotransferase 15 U/L (7-52); Albumin Globulin Ratio 1.6 (0.9-2); Albumin Level 4.2 gm/dl (3.4-5.0); Alkaline Phosphatase 40 U/L (34-104); Anion Gap 8 (3-11); BUN Creatinine Ratio 18.8 (10-20); Bilirubin,Total 0.6 mg/dl (0.2-1.0); Blood Urea Nitrogen 15 mg/dl (6-23); Calcium 9.5 mg/dl (8.5-10.1); Carbon Dioxide 24 mmol/L (21-32); Chloride 106 mmol/L (98-107); Est GFR (African American) 80.7 ml/min; Est GFR (Non-African American) 69.6 ml/min; Globulin 2.7 gm/dl (2.5-4.0); Glucose 102 mg/dl (70-99(Fasting)); Sodium 138 mmol/L (136-145); Total Protein 6.9 gm/dl (6.0-8.3)
[2021-07-18 09:36] LABS: Potassium 4.5 mmol/L (3.5-5.1)
[2021-07-18] MEDS ORDERED: METOPROLOL TARTRATE 25 MG TAB PO STA (09:46)
[2021-07-18 10:24] LABS: Lipase 36 U/L (11-82)
[2021-07-18 10:56] LABS: C Reactive Protein < 0.50 mg/dl (0-0.5)
--- NOTE | 2021-07-18 11:05 | History & Physical Report ---
Date of Service July 18, 2021 Assessment & Plan (1) Chest pain: Plan: Chest pain at rest that awakened her from sleep - DDX: Cardiac chest pain vs. Non-cardiac chest pain vs. inflammatory vs. muscle strain (non-cardiac) - Currently this appears to be non-cardiac chest pain- Reproducible across left chest - Evaluate CRP and ESR - ECG without ST elevation/depression - CXR without acute pulmonary or musculoskeletal component - Risk factors- age, HTN, HLD - Trend HScTNI second high-sensitivity troponin went from 5.7-37.3. Out to 1600 for full evaluation following peak onset of her discomfort - ECHO to evaluate for any RWMA - Consider EST as outpatient or in AM if warranted following the above (2) Hypertension: Plan: HTN uncontrolled - She does not check her BP at home regularly- when she does she has varying results of 120-150s - Currently 168/85- trend this overnight adjust therapy if warranted or follow up with PCP - Metoprolol 25 mg PO daily - Losartan 50mg PO daily (she takes this at night) (3) Hypercholesterolemia: Plan: Last check 12/09 - CHOL 203, LDL 112, VLDL 26, Trigs, 129, HDL 65 - currently on no therapy (4) 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 Patient comest to the EMD today for complaints of left arm tingling and pain across her left chest. This woke her up this morning at around 0530. Patient states that she thought that this was secondary to her sleeping on her arm, so she waited for about 30 minutes and this did not resolve. She then called her daughter and they came to the EMD. The pain started to resolve around 0800 when she got here. The pain was along her left chest 3-5 intercostal along the front chest wall described as "just a pain" this was associated with nausea in the morning and left arm tingling , th is was NOT associated with any activity, or shortness of breath, chills fevers, vomiting or radiation in to her neck, jaw, or back. 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 She was also mowing grass this weekend (on Sunday) with push mower. She denies any chest pain or dyspnea at that time, but was fatigued afterwards. In the EMD the patient was noted to be hypertensive (she did not take her metoprolol this mornint). She had ECG performed, CXR, Routine labs to include HScTNI. She was given 324 mg ASA, and NTG, as well as her Metoprolol. Her HScTNI was negative x1 at 7:55 this morning. Repeat is pending, this repeat would be approx 6 hours from onset of discomfort. Her chest pain appears to be reproducible along the chest wall, and she reports this is the same pain that she had this morning. Will observe patient overnight, with trending of her BPs as she remains >160/80, and draw another HScTNI at 1600. She has no other neurological deficits or drift to associate with her left arm tinging. COVID test on admission is: NEGATIVE Allergies Allergy/AdvReac Type Severity Reaction Status Date / Time No Known Allergies Allergy Verified 12/15/20 07:37 Home Medications Medication Instructions Recorded Confirmed Type multivitamin (Multiple Vitamins) 1 tab PO QAM 12/30/17 12/15/20 History calcium carbonate 600 mg-vitamin 1 tab PO DAILY tab 11/21/18 12/15/20 History D3 5 mcg (200 unit) tablet anastrozole 1 mg tablet 1 mg PO DAILY 07/17/19 12/15/20 History metoprolol tartrate 25 mg tablet 25 mg PO DAILY #90 tab 06/07/20 12/15/20 Rx losartan 50 mg tablet 50 mg PO DAILY #90 tab 01/25/21 Rx Past Med/Surg History Medical History (Updated 07/18/21 @ 10:54 by KEENA Santos) Breast cancer of lower-inner quadrant of right female breast (08/25/15) Cataract Cervical polyp Dermatitis Fall at home Foot injury Herpes zoster Hypercholesterolemia Hypertension Mammogram abnormal Memory loss Oral ulcer Seborrheic dermatitis of scalp Thickened endometrium Urinary tract infection Surgical History History of breast biopsy History of cataract surgery History of colonoscopy History of dilatation and curettage D&C, Hysteroscopy, Polypectomy using Myosure (cervical and endometrial polyp) History of partial mastectomy of right breast History of tonsillectomy History of tooth extraction Family History Denies family history of Ovarian cancer Prostate cancer Myocardial infarction Breast cancer Colorectal cancer Social History Smoking Status: Never smoker Second Hand Exposure: No; Hx Alcohol Use: No Hx Substance Use: No Preferred Language: Irish Communication Ability: Effective Visual Impairment: No Limitations Hearing 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: 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 Electronics Required: No Beliefs That Will Affect Care: None marital status: Current Living Situation: Spouse current occupational status: retired Feels Safe at Home: Yes Childhood Exposure to Second-Hand Smoke: No Dental Care, Regularly: Yes Physical Activity Frequency: 1-2 Times per Week Physical Activity Frequency Comment: walking, 30 minutes Seatbelt Use: always Sunscreen Use: No Assistive Devices: None Review of Systems Review of Systems: REVIEW OF SYSTEMS: Constitutional: No fever, sweats or chills Eyes: No diplopia, no worsening or blurred vision ENT: normal hearing, no trouble swallowing Respiratory: No cough, sputum, dyspnea at rest or on exertion Cardiovascular: (+) chest pain, NO tightness or palpitations Abdomen: No pain, nausea, vomiting, diarrhea or constipation Musculoskeletal: (+) left arm tingling, No joint pain, calf pain, swelling Neurologic: No weakness, numbness/tingling, or balance problems Psychiatric: No anxiety or depression Skin: No rash or itch Physical Exam Physical Exam: PHYSICAL EXAM: General: awake, alert, no apparent distress Head: Normocephalic, atraumatic ENT: PERRL, EOMI, no pharyngeal exudate, mucous membranes moist Neuro: AAO x 3, speech clear and appropriate, strength intact bilaterally 5/5, sensation intact and equal all extremities and dermatomes, no pronator drift Chest: equal rise and fall of the chest, no accessory muscle use, no heaves or thrills, Clear to auscultation, on room air, Cardiac: Regular rate and rhythm, telemetry reviewed- NSR 60s, skin warm dry, cap refill <3 seconds, peripheral pulses +2 no JVD, no murmur, no edema GI: NABS x 4 quadrants, soft, nontender to palpation, no rebound, guarding or tenderness : Spontaneously voiding, no pain, no CVA tenderness, Extremities: Normal inspection, no peripheral edema or erythema, calfs nontender to palpation Psych: Normal mood and affect Skin: no rash or erythema Results & Data Results & Data ([facility]) Vital Signs (Past 12 Hours) Vital Signs Temp Pulse Pulse Resp BP BP Pulse Ox 07/18/21 09:30 69 19 162/82 H 94 07/18/21 09:18 70 68 20 188/84 H 188/84 H 99 07/18/21 09:00 66 25 H 187/83 H 97 07/18/21 08:30 66 19 192/74 H 07/18/21 08:00 67 14 171/88 H 99 07/18/21 07:30 71 19 100 07/18/21 07:27 76 17 98 07/18/21 07:18 36.9 C 76 20 183/92 H 99 Laboratory Results Laboratory Results - last 24 hr 07/18/21 07/18/21 07/18/21 07:55 07:55 07:55 WBC 7.36 RBC 4.47 Hgb 13.6 Hct 42.1 MCV 94.2 MCH 30.4 MCHC 32.3 RDW Std Deviation 42.6 RDW Coeff of Tawny 12.4 Plt Count 295 MPV 10.5 H Immature Gran % (Auto) 0.4 Neut % (Auto) 72.9 Lymph % (Auto) 16.8 Rock % (Auto) 9.1 Eos % (Auto) 0.7 Baso % (Auto) 0.1 Neut # (Auto) 5.36 Lymph # (Auto) 1.24 Rock # (Auto) 0.67 H Eos # (Auto) 0.05 Baso # (Auto) 0.01 Immature Gran # (Auto) 0.03 H ESR Sodium 138 Potassium TNP Chloride 106 Carbon Dioxide 24 Anion Gap 8 BUN 15 Creatinine 0.80 Est Cr Clr Drug Dosing 49.0 Est GFR ( Amer) 80.7 Est GFR (Non-Af Amer) 69.6 BUN/Creatinine Ratio 18.8 Glucose 102 H Calcium 9.5 Magnesium 2.0 Total Bilirubin 0.6 AST TNP ALT 15 Alkaline Phosphatase 40 Troponin I High Sens 5.7 C-Reactive Protein B-Natriuretic Peptide Total Protein 6.9 Albumin 4.2 Globulin 2.7 Albumin/Globulin Ratio 1.6 Lipase 36 SARS-CoV-2, RNA, NAAT 07/18/21 07/18/21 07/18/21 07:55 08:30 08:53 WBC RBC Hgb Hct MCV MCH MCHC RDW Std Deviation RDW Coeff of Tawny Plt Count MPV Immature Gran % (Auto) Neut % (Auto) Lymph % (Auto) Rock % (Auto) Eos % (Auto) Baso % (Auto) Neut # (Auto) Lymph # (Auto) Rock # (Auto) Eos # (Auto) Baso # (Auto) Immature Gran # (Auto) ESR 9 Sodium Potassium 4.5 Chloride Carbon Dioxide Anion Gap BUN Creatinine Est Cr Clr Drug Dosing Est GFR ( Amer) Est GFR (Non-Af Amer) BUN/Creatinine Ratio Glucose Calcium Magnesium Total Bilirubin AST 21 ALT Alkaline Phosphatase Troponin I High Sens C-Reactive Protein B-Natriuretic Peptide Total Protein Albumin Globulin Albumin/Globulin Ratio Lipase SARS-CoV-2, RNA, NAAT NEGATIVE 07/18/21 07/18/21 10:17 10:17 WBC RBC Hgb Hct MCV MCH MCHC RDW Std Deviation RDW Coeff of Tawny Plt Count MPV Immature Gran % (Auto) Neut % (Auto) Lymph % (Auto) Rock % (Auto) Eos % (Auto) Baso % (Auto) Neut # (Auto) Lymph # (Auto) Rock # (Auto) Eos # (Auto) Baso # (Auto) Immature Gran # (Auto) ESR Sodium Potassium Chloride Carbon Dioxide Anion Gap BUN Creatinine Est Cr Clr Drug Dosing Est GFR ( Amer) Est GFR (Non-Af Amer) BUN/Creatinine Ratio Glucose Calcium Magnesium Total Bilirubin AST ALT Alkaline Phosphatase Troponin I High Sens Pending C-Reactive Protein Pending B-Natriuretic Peptide Pending Total Protein Albumin Globulin Albumin/Globulin Ratio Lipase SARS-CoV-2, RNA, NAAT Diagnostic Findings Chest X-Ray 07/18/21 07:31 XR chest 1V portable CLINICAL HISTORY: Atypical chest pain TECHNIQUE: Single frontal radiograph of the chest was obtained. Comparison: Comparison is made to chest radiograph 08/28/2020 FINDINGS: No lines and tubes are seen. Calcified aortic knob is seen. The lungs are clear. No evidence of pleural effusion or pneumothorax. IMPRESSION: No acute chest disease. ACT 112: Negative or not required by law. Electronically signed by: Moisés Michelle M.D. 07/18/2021 8:02 AM Medications Administered Home Medications multivitamin (Multiple Vitamins) 1 tab PO QAM 12/30/17 [History Confirmed 12/15/20] calcium carbonate 600 mg-vitamin D3 5 mcg (200 unit) tablet 1 tab PO DAILY tab 11/21/18 [History Confirmed 12/15/20] anastrozole 1 mg tablet 1 mg PO DAILY 07/17/19 [History Confirmed 12/15/20] metoprolol tartrate 25 mg tablet 25 mg PO DAILY #90 tab 06/07/20 [Rx Confirmed 12/15/20] losartan 50 mg tablet 50 mg PO DAILY #90 tab 01/25/21 [Rx] Active Medications Nitroglycerin (Nitroglycerin Sl 0.4 Mg/Tab Tab) 0.4 mg SL UD PRN PRN Reason: Chest Pain Stop: 08/17/21 07:30 Last Admin: 07/18/21 09:19 Dose: 0.4 mg Documented by: Nitroglycerin (Nitroglycerin Sl 0.4 Mg/Tab Tab) 0.4 mg SL UD PRN PRN Reason: Chest Pain Stop: 08/17/21 07:30 Last Admin: 07/18/21 09:19 Dose: 0.4 mg Documented by: [id number] Discontinued Medications Acetaminophen (Acetaminophen 325 Mg Tab) 650 mg PO NOW STA Stop: 07/18/21 07:32 Last Admin: 07/18/21 08:27 Dose: 650 mg Documented by: [id number] Aspirin (Aspirin Chew 324 Mg) 243 mg PO NOW STA Stop: 07/18/21 07:32 Last Admin: 07/18/21 08:31 Dose: 243 mg Documented by: [id number] Sodium Chloride (Nss) 500 mls @ 999 mls/hr IV .Q31M STA Stop: 07/18/21 08:01 Last Infusion: 07/18/21 09:27 Dose: 0 mls/hr Documented by: [id number] Admin: 07/18/21 08:31 Dose: 999 mls/hr Documented by: [id number] ECG Additional Comments: Normal sinus rhythm Possible Left atrial enlargement Abnormal ECG When compared with ECG of 24-NANI-2008 10:08, No significant change was found Confirmed by Pierre Jones ([id number]) on 08/28/2020 9:02:54 PM Code Status & VTE Plan Code Status CODE: FULL VTE: Kevin, Lovenox 40mg Subq daily - start 07/19/21 VTE Prophylaxis Plan VTE Prophylaxis will be ordered: Yes Supervising Physician Co-Signing Physician Notes Patient was seen and examined independently I discussed the case with Goyo BRINK I reviewed pertinent past medical social family history and also the plan of care and agree with the plan of care. Patient presents with some chest wall discomfort but also some associated left arm paresthesias that she woke with this morning. Patient begin physical exercise over the weekend without exacerbation of these things but then she awoke and they were unremitting so she presented for evaluation. ER doctors heart score feels she does have some risk factors and recommended observation for trending of high-sensitivity troponins and possible risk stratification. Patient and family are in agreement with this. My evaluation she did have some minor musculoskeletal discomfort of her chest wall. I heard no murmurs clicks rubs or gallops with her heart her lungs were clear her arm had good range of motion without any peripheral neuropathy Patient will continue treatment of her risk factors with metoprolol aspirin 81 a day and losartan Patient does have a history of breast cancer however this was on the right, radiation also only in the right breast she continues on anastrozole Any exceptions will be noted below PG Care Time/CCT Total # of Minutes Spent Total Time Spent with Patient: Total time spent is greater than 50% in coordination of care (as documented) at patient's floor/unit and/or counseling patient: Coding Level of Care Code INT OBSERVATION CARE 50M LVL 2 Diagnoses Chest pain R07.9 Hypertension I10 Hypercholesterolemia E78.00 Breast cancer C50.919
[2021-07-18 11:08] LABS: Troponin I High Sensitivity 37.3 pg/ml (0-14)
[2021-07-18] MEDS ORDERED: ENOXAPARIN INJ 40 MG/0.4 ML SYR SQ SCH (11:16)
[2021-07-18] MEDS ORDERED: ACETAMINOPHEN 325 MG TAB PO PRN (11:16)
[2021-07-18] MEDS: ANASTROZOLE 1 MG TAB PO SCH (13:18)
[2021-07-18] MEDS: CALCIUM 600MG + VIT D 400 IU TAB PO SCH (13:18)
[2021-07-18] MEDS ORDERED: amLODIPine BESYLATE 5 MG TAB PO ONE (18:00)
[2021-07-18] MEDS ORDERED: Heparin IV Adult Wt-Based Low-Dose WITH Bolus Protocol IV SCH (18:14)
[2021-07-18] MEDS ORDERED: HEPARIN SOD (PORCINE) 1000 UNIT/ML IV ONE (18:26)
[2021-07-18] MEDS ORDERED: HEPARIN SODIUM/DEXTROSE 25,000 UNITS/500 ML BAG IV SCH (18:30)
[2021-07-18 19:05] LABS: Partial Thromboplastin Ratio 1.1; Partial Thromboplastin Time 29.2 Seconds (21.0-31.0); Prothrombin Time 10.6 Seconds (9.0-12.0)
[2021-07-18] MEDS: LOSARTAN POTASSIUM 50 MG TAB PO SCH (21:18)
[2021-07-19 03:03] LABS: Partial Thromboplastin Ratio 1.5; Partial Thromboplastin Time 41.9 Seconds (21.0-31.0)
[2021-07-19 07:22] LABS: Basophils # (auto) 0.01 K/uL (0-0.2); Basophils % (auto) 0.2 %; Eosinophils # (auto) 0.04 K/uL (0-0.5); Eosinophils % (auto) 0.8 %; Hematocrit (blood only) 40.8 % (37-47); Hemoglobin 13.4 g/dL (12.0-16.0); Immature Granulocytes # (auto) 0.01 K/uL (0.00-0.02); Immature Granulocytes % (auto) 0.2 %; Lymphocytes # (auto) 1.48 K/uL (1.2-3.4); Lymphocytes % (auto) 28.6 %; Mean Corpuscular Hemoglobin 30.7 pg (25-34); Mean Corpuscular Hgb Conc 32.8 g/dL (32-36); Mean Corpuscular Volume 93.6 fL (80-100); Mean Platelet Volume 10.2 fL (7.4-10.4); Monocytes # (auto) 0.47 K/uL (0.11-0.59); Monocytes % (auto) 9.1 %; Neutrophils # (auto) 3.16 K/uL (1.4-6.5); Neutrophils % (auto) 61.1 %; Platelet Count 282 K/uL (130-400); RDW Coefficient of Variation 12.3 % (11.5-14.5); Red Blood Count 4.36 M/uL (4.2-5.4); White Blood Count 5.17 K/uL (4.8-10.8)
[2021-07-19 07:45] LABS: Partial Thromboplastin Ratio 1.7
--- NOTE | 2021-07-19 07:55 | XCELERA ---
[id number]
[2021-07-19 07:56] LABS: BUN Creatinine Ratio 19.4 (10-20); Calcium 8.9 mg/dl (8.5-10.1); Chol HDL Ratio 3.4 (0-5); Creatinine Clr Calc Pharmacy 54.1 ml/min; Est GFR (African American) 91.7 ml/min; Est GFR (Non-African American) 79.1 ml/min; Magnesium 1.9 mg/dl (1.7-2.4); Troponin I High Sensitivity 196.7 pg/ml (0-14)
--- NOTE | 2021-07-19 07:57 | Electrocardiogram Report ---
Test Reason : Blood Pressure : / mmHG Vent. Rate : 074 BPM Atrial Rate : 074 BPM P-R Int : 182 ms QRS Dur : 082 ms QT Int : 386 ms P-R-T Axes : 063 -18 028 degrees QTc Int : 428 ms Normal sinus rhythm Left atrial enlargement Borderline ECG When compared with ECG of 28-AUG-2020 12:27, No significant change was found Confirmed by Julio Castillo ([id number]) on 07/19/2021 7:57:37 AM Referred By: REFERRED SELF Confirmed By:Julio Castillo
[2021-07-19 07:58] LABS: Partial Thromboplastin Time 45.7 Seconds (21.0-31.0)
[2021-07-19] MEDS: METOPROLOL TARTRATE 25 MG TAB PO SCH (07:59)
[2021-07-19] MEDS: CALCIUM 600MG + VIT D 400 IU TAB PO SCH (07:59)
[2021-07-19] MEDS: ASPIRIN 81 MG ECTAB PO SCH (07:59)
[2021-07-19] MEDS: ANASTROZOLE 1 MG TAB PO SCH (07:59)
--- NOTE | 2021-07-19 08:48 | Electrocardiogram Report ---
Test Reason : Blood Pressure : / mmHG Vent. Rate : 073 BPM Atrial Rate : 073 BPM P-R Int : 196 ms QRS Dur : 084 ms QT Int : 400 ms P-R-T Axes : 063 -22 048 degrees QTc Int : 440 ms Normal sinus rhythm Poor R wave progression, consider anterior VA vs. lead placement vs. LVH Abnormal ECG When compared with ECG of 18-JUL-2021 07:21, No significant change Confirmed by Julio Castillo ([id number]) on 07/19/2021 8:48:12 AM Referred By: REFERRED SELF Confirmed By:Julio Castillo
[2021-07-19 10:31] LABS: Partial Thromboplastin Ratio 1.3; Partial Thromboplastin Time 37.1 Seconds (21.0-31.0)
[2021-07-19] MEDS ORDERED: HEPARIN IV BOLUS 2,000 UNITS in SYRINGE 0 ML IV ONE (10:40)
--- NOTE | 2021-07-19 10:54 | Cardiology Consultation ---
Date of Consultation July 19, 2021 Assessment & Plan (1) NSTEMI (non-ST elevated myocardial infarction): (2) Hypertension: (3) Hypercholesterolemia: 80-year-old woman with vascular risk factors of age/hypertension/dyslipidemia and episode chest pain yesterday with unremarkable ECG and echocardiogram but peak and decay cardiac enzyme curve consistent with non-ST elevation myocardial infarction. She has an active elderly individual, she was using a push mower over the weekend and she had not noted any symptoms prior to awakening with chest pain yesterday. Recommended proceeding to cardiac catheterization to define coronary anatomy. Continue aspirin, additional antiplatelet agent based on cath results. Continue vasoactive regimen of amlodipine/losartan/metoprolol, consider increasing metoprolol. Currently on IV heparin, will hold this at the time of catheterization. Depending on catheterization results, likely will initiate statin as well. Further recommendations based on results of cardiac catheterization this afternoon. History of Present Illness Reason for Consultation: NSTEMI Requesting Physician: Shanika Stevenson MD Attending Physician: Shanika Stevenson MD History of Present Illness 80-year-old woman with vascular risk factors (dyslipidemia/hypertension/age) but no known cardiac history who was admitted 07/18/2021 after an episode of chest discomfort that awakened her from sleep, ECG was negative but enzymes showed peak and decay curve consistent with non-ST elevation WI. Initial discomfort was left arm "tingling" which ultimately radiated to her shoulder and chest, only associated symptom was nausea. No diaphoresis, dyspnea, palpitations, lightheadedness, presyncope, or syncope. She was brought to the ER where initial ECG and enzymes were negative, she did have an element of reproducible chest wall pain at that time. Her arm and shoulder discomfort had resolved and have not recurred since. At the time of my evaluation, she was comfortable and had no somatic complaints. Allergies Allergy/AdvReac Type Severity Reaction Status Date / Time No Known Allergies Allergy Verified 12/15/20 07:37 Home Medications Medication Instructions Recorded Confirmed Type multivitamin (Multiple Vitamins) 1 tab PO QAM 12/30/17 12/15/20 History calcium carbonate 600 mg-vitamin 1 tab PO DAILY tab 11/21/18 12/15/20 History D3 5 mcg (200 unit) tablet anastrozole 1 mg tablet 1 mg PO DAILY 07/17/19 12/15/20 History metoprolol tartrate 25 mg tablet 25 mg PO DAILY #90 tab 06/07/20 12/15/20 Rx losartan 50 mg tablet 50 mg PO DAILY #90 tab 01/25/21 Rx Patient History Medical History (Updated 07/19/21 @ 10:50 by Julio Castillo MD) Breast cancer of lower-inner quadrant of right female breast (08/25/15) Cataract Cervical polyp Dermatitis Fall at home Foot injury Herpes zoster Hypercholesterolemia Hypertension Mammogram abnormal Memory loss Oral ulcer Seborrheic dermatitis of scalp Thickened endometrium Urinary tract infection Surgical History History of breast biopsy History of cataract surgery History of colonoscopy History of dilatation and curettage D&C, Hysteroscopy, Polypectomy using Myosure (cervical and endometrial polyp) History of partial mastectomy of right breast History of tonsillectomy History of tooth extraction Family History Denies family history of Ovarian cancer Prostate cancer Myocardial infarction Breast cancer Colorectal cancer Social History Smoking Status: Never smoker Second Hand Exposure: No; Hx Alcohol Use: No Hx Substance Use: No Preferred Language: Icelandic Communication Ability: Effective Visual Impairment: No Limitations Hearing Ability: Normal 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 BP normotensive. Pulse 76 bpm and regular. Skin: no ecchymoses or generalized lesions. HEENT: unremarkable. Neck: no JVD or carotid bruits. Lungs: clear. Cardiac: regular rhythm, normal S1 and S2, no murmur or gallop. Abdomen: benign. Extremities: no edema, brisk radial and posterior tibial pulses. Neurologic: normal affect, nonfocal. Results & Data ([facility]) Vital Signs (Past 12 Hours) Vital Signs Temp Pulse Resp BP Pulse Ox 07/19/21 07:31 98.2 F 77 18 132/71 97 07/19/21 02:44 97.9 F 75 18 159/77 H 98 07/18/21 22:53 97.9 F 72 18 149/75 H 96 Laboratory Results Initial hs-troponin 5, peak hs-troponin 441, hs-troponin this morning 196. Normal CBC. Normal electrolytes, UN 14, creatinine 0.72. Magnesium 1.9. Diagnostic Findings Initial ECG showed sinus rhythm at 73 bpm with poor R wave progression, otherwise unremarkable. Compared with August 2020 ECG, no change. Additional ECGs last evening and this morning also showed sinus rhythm with poor R wave progression and were unchanged. Echocardiogram showed EF 60 to 65% with no wall motion abnormalities, she did have moderate to severe left ventricle hypertrophy. Mild mitral regurgitation, normal RVSP, mildly dilated inferior vena cava. Chest x-ray with no acute processes. Calcified aortic knob. PG Care Time/CCT Total # of Minutes Spent Total Time Spent with Patient: Total time spent is greater than 50% in coordination of care (as documented) at patient's floor/unit and/or counseling patient: Coding Level of Care Code 12945 Inpt Consult Level 4 Diagnoses NSTEMI (non-ST elevated myocardial infarction) I21.4 Hypertension I10 Hypertension type: unspecified Hypercholesterolemia E78.00 (1) Hypertension Hypertension type: unspecified Qualified Code(s): I10 - Essential (primary) hypertension
--- NOTE | 2021-07-19 12:15 | Hospitalist Progress Note ---
Date of Service July 19, 2021 Assessment & Plan (1) NSTEMI (non-ST elevated myocardial infarction): Plan: Presented with Chest pain at rest that awakened her from sleep - CRP and ESR normal - ECG without ST elevation/depression - CXR without acute pulmonary or musculoskeletal component - Risk factors- age, HTN, HLD - Trended HScTNI second high-sensitivity troponin went from 5.7-37.3 and then up further to 441 peak c/w NSTEMI----> heparin gtt was started after admission and will be held for cath - ECHO to evaluate for any RWMA was normal -lipids here are excellent but if has CAD, will need statin high intensity -Appreciate Cardio consult--> plan for cardiac cath today -Continue aspirin, additional antiplatelet agent based on cath results. -Continue vasoactive regimen of amlodipine/losartan/metoprolol, consider increasing metoprolol as per Cardiology (2) Hypertension: Plan: HTN -BPs controlled - She does not check her BP at home regularly- when she does she has varying results of 120-150s -continue Metoprolol 25 mg PO daily (tartrate only once a day)--> likely titrate up -continue Losartan 50mg PO daily (she takes this at night) -was given one dose amlodipine (3) Hypercholesterolemia: Plan: Lipids here are excellent - currently on no therapy but will likely need statin if CAD on cath (4) Breast cancer: Plan: Diagnosed 2016:- poorly differentiated - (+)ER/OH(-) treated with RTX only on the right side, and is on Anastrazole currently - continue anastrazole - further monitoring and management per outpatient team Plan: DVT proph-SCDs, heparin gtt Dispo-continued stay on tele Discussed case with Dr. Castillo Admission and Anticipated Discharge Date Admission Date: July 18, 2021 Subjective Pt feels anxious about having a cardiac cath today but is agreeable. Denies current CP, SOB, nausea. Is anxious to get back to taking care of her at home. Tele with NSR, rates 60-70s Review of Systems Review of Systems: All systems reviewed & are unremarkable except as noted in HPI & below Physical Exam Constitutional: WD/WN, vitals as above Eyes: + anicteric sclerae ENMT: external ear and nose normal, oropharynx normal Neck: trachea midline, no thyromegaly Respiratory: normal respiratory effort, lungs clear to auscultation Cardiovascular: RRR, no murmur, no edema Chest (Breasts): Chest: normal inspection of chest Gastrointestinal (Abdomen): normal bowel sounds, soft, nontender, no hepatosplenomegaly Musculoskeletal: Extremities: extremities normal to inspection; no cyanosis and no clubbing Skin: no rashes, warm and dry Neurologic: moves all extremities and awake; no focal motor deficits Psychiatric: A+Ox3, euthymic affect Lymphatic: no lymphedema Results & Data Results & Data ([facility]) Vital Signs (Past 12 Hours) Vital Signs Temp Pulse Resp BP Pulse Ox 07/19/21 11:29 36.7 C 69 18 138/71 97 07/19/21 07:31 36.8 C 77 18 132/71 97 07/19/21 02:44 36.6 C 75 18 159/77 H 98 Laboratory Results 07/19/21 07/19/21 07/19/21 Range/Units 10:03 07:04 07:04 WBC (4.8-10.8) K/uL RBC (4.2-5.4) M/uL Hgb (12.0-16.0) g/dL Hct (37-47) % MCV (80-100) fL MCH (25-34) pg MCHC (32-36) g/dL RDW Std Deviation (36.4-46.3) fL RDW Coeff of Tawny (11.5-14.5) % Plt Count (130-400) K/uL MPV (7.4-10.4) fL Immature Gran % (Auto) % Neut % (Auto) % Lymph % (Auto) % Pershing % (Auto) % Eos % (Auto) % Baso % (Auto) % Neut # (Auto) (1.4-6.5) K/uL Lymph # (Auto) (1.2-3.4) K/uL Pershing # (Auto) (0.11-0.59) K/uL Eos # (Auto) (0-0.5) K/uL Baso # (Auto) (0-0.2) K/uL Immature Gran # (Auto) (0.00-0.02) K/uL PT (9.0-12.0) Seconds INR (0.9-1.1) APTT 37.1 H 45.7 H* (21.0-31.0) Seconds PTT Ratio 1.3 1.7 Sodium 137 (136-145) mmol/L Potassium 4.0 (3.5-5.1) mmol/L Chloride 107 (98-107) mmol/L Carbon Dioxide 24 (21-32) mmol/L Anion Gap 6 (3-11) BUN 14 (6-23) mg/dl Creatinine 0.72 (0.6-1.2) mg/dl Est Cr Clr Drug Dosing 54.1 ml/min Est GFR ( Amer) 91.7 ml/min Est GFR (Non-Af Amer) 79.1 ml/min BUN/Creatinine Ratio 19.4 (10-20) Glucose 113 H (70-99(Fasting)) mg/dl Calcium 8.9 (8.5-10.1) mg/dl Magnesium 1.9 (1.7-2.4) mg/dl Troponin I High Sens 196.7 H* D (0-14) pg/ml Triglycerides 114 (0-150) mg/dl Cholesterol 183 (0-200) mg/dl LDL Cholesterol, Calc 106 mg/dl VLDL Cholesterol, Calc 23 (0-30) mg/dl HDL Cholesterol 54 mg/dl Cholesterol/HDL Ratio 3.4 (0-5) 07/19/21 07/19/21 07/18/21 Range/Units 07:04 02:33 22:48 WBC 5.17 (4.8-10.8) K/uL RBC 4.36 (4.2-5.4) M/uL Hgb 13.4 (12.0-16.0) g/dL Hct 40.8 (37-47) % MCV 93.6 (80-100) fL MCH 30.7 (25-34) pg MCHC 32.8 (32-36) g/dL RDW Std Deviation 42.0 (36.4-46.3) fL RDW Coeff of Tawny 12.3 (11.5-14.5) % Plt Count 282 (130-400) K/uL MPV 10.2 (7.4-10.4) fL Immature Gran % (Auto) 0.2 % Neut % (Auto) 61.1 % Lymph % (Auto) 28.6 % Pershing % (Auto) 9.1 % Eos % (Auto) 0.8 % Baso % (Auto) 0.2 % Neut # (Auto) 3.16 (1.4-6.5) K/uL Lymph # (Auto) 1.48 (1.2-3.4) K/uL Pershing # (Auto) 0.47 (0.11-0.59) K/uL Eos # (Auto) 0.04 (0-0.5) K/uL Baso # (Auto) 0.01 (0-0.2) K/uL Immature Gran # (Auto) 0.01 (0.00-0.02) K/uL PT (9.0-12.0) Seconds INR (0.9-1.1) APTT 41.9 H (21.0-31.0) Seconds PTT Ratio 1.5 Sodium (136-145) mmol/L Potassium (3.5-5.1) mmol/L Chloride (98-107) mmol/L Carbon Dioxide (21-32) mmol/L Anion Gap (3-11) BUN (6-23) mg/dl Creatinine (0.6-1.2) mg/dl Est Cr Clr Drug Dosing ml/min Est GFR ( Amer) ml/min Est GFR (Non-Af Amer) ml/min BUN/Creatinine Ratio (10-20) Glucose (70-99(Fasting)) mg/dl Calcium (8.5-10.1) mg/dl Magnesium (1.7-2.4) mg/dl Troponin I High Sens 441.7 H* D (0-14) pg/ml Triglycerides (0-150) mg/dl Cholesterol (0-200) mg/dl LDL Cholesterol, Calc mg/dl VLDL Cholesterol, Calc (0-30) mg/dl HDL Cholesterol mg/dl Cholesterol/HDL Ratio (0-5) 07/18/21 07/18/21 Range/Units 18:35 16:38 WBC (4.8-10.8) K/uL RBC (4.2-5.4) M/uL Hgb (12.0-16.0) g/dL Hct (37-47) % MCV (80-100) fL MCH (25-34) pg MCHC (32-36) g/dL RDW Std Deviation (36.4-46.3) fL RDW Coeff of Tawny (11.5-14.5) % Plt Count (130-400) K/uL MPV (7.4-10.4) fL Immature Gran % (Auto) % Neut % (Auto) % Lymph % (Auto) % Pershing % (Auto) % Eos % (Auto) % Baso % (Auto) % Neut # (Auto) (1.4-6.5) K/uL Lymph # (Auto) (1.2-3.4) K/uL Pershing # (Auto) (0.11-0.59) K/uL Eos # (Auto) (0-0.5) K/uL Baso # (Auto) (0-0.2) K/uL Immature Gran # (Auto) (0.00-0.02) K/uL PT 10.6 (9.0-12.0) Seconds INR 1.0 (0.9-1.1) APTT 29.2 (21.0-31.0) Seconds PTT Ratio 1.1 Sodium (136-145) mmol/L Potassium (3.5-5.1) mmol/L Chloride (98-107) mmol/L Carbon Dioxide (21-32) mmol/L Anion Gap (3-11) BUN (6-23) mg/dl Creatinine (0.6-1.2) mg/dl Est Cr Clr Drug Dosing ml/min Est GFR ( Amer) ml/min Est GFR (Non-Af Amer) ml/min BUN/Creatinine Ratio (10-20) Glucose (70-99(Fasting)) mg/dl Calcium (8.5-10.1) mg/dl Magnesium (1.7-2.4) mg/dl Troponin I High Sens 327.1 H* D (0-14) pg/ml Triglycerides (0-150) mg/dl Cholesterol (0-200) mg/dl LDL Cholesterol, Calc mg/dl VLDL Cholesterol, Calc (0-30) mg/dl HDL Cholesterol mg/dl Cholesterol/HDL Ratio (0-5) PG Care Time/CCT Total # of Minutes Spent Total Time Spent with Patient: Total time spent is greater than 50% in coordination of care (as documented) at patient's floor/unit and/or counseling patient: Coding Level of Care Code 62954 Subseq Hosp Care Lvl 3 Diagnoses Hypertension I10 Hypercholesterolemia E78.00 Breast cancer C50.919 NSTEMI (non-ST elevated myocardial infarction) I21.4
[2021-07-19] MEDS ORDERED: MIDAZOLAM HCL 1 MG/ML 2ML VIAL ONE (12:22)
[2021-07-19] MEDS ORDERED: niCARdipine HCL INJ 2.5 MG/ML 10 ML AMP ONE (12:22)
[2021-07-19] MEDS ORDERED: HEPARIN (PORCINE) 1000 UNIT/ML 10 ML (CATH LAB USE ONLY) ONE (12:22)
[2021-07-19] MEDS ORDERED: fentaNYL citrate 100 MCG/2 ML VIAL ONE (12:23)
[2021-07-19] MEDS ORDERED: NITROGLYCERIN/D5W 100MCG/ML 20ML SYR ONE (12:23)
--- NOTE | 2021-07-19 12:42 | Pre Anesthesia Assessment ---
Date of Service July 19, 2021 Pre Sedation Assessment Vital Signs Temp Pulse Pulse Pulse Resp BP Pulse Ox 07/19/21 11:29 98.1 F 69 18 138/71 97 07/19/21 07:31 98.2 F 77 18 132/71 97 07/19/21 02:44 97.9 F 75 18 159/77 H 98 07/18/21 22:53 97.9 F 72 18 149/75 H 96 07/18/21 22:18 70 07/18/21 19:50 98.1 F 71 18 169/75 H 94 07/18/21 16:33 69 07/18/21 16:27 98.2 F 65 17 163/95 H 97 Cardiovascular RRR, no murmur, no edema Respiratory normal respiratory effort, lungs clear to auscultation Pre-Sedation Airway Assessment Smoking Status: Never smoker Hx Sleep Apnea: No Hx Difficult Intubation: No Short, Thick Neck: Yes Thyromental Distance: > or= 3.5 Finger Breadths Oral Cavity: + WNL Mallampati Class: III ASA: ASA3 NPO Status Date of Last Intake of Fluids: 07/18/21 Date of Last Intake of Solid Food: 07/18/21 Procedure Planning Contraindications for Sedation: none Current Medications Reviewed: Yes Notes The planned sedation has been discussed with the patient. Informed Consent was obtained. I have identified the patient, determined the appropriateness of sedation and have assessed the patient immediately prior to the procedure. All medicine(s) and interventions are by my order.
--- NOTE | 2021-07-19 15:10 | Post Anesthesia Assessment ---
Date of Service July 19, 2021 Post Sedation Assessment Vital Signs Temp Pulse Pulse Pulse Resp BP Pulse Ox 07/19/21 14:50 65 18 137/74 98 07/19/21 14:35 74 18 117/72 98 07/19/21 11:29 98.1 F 69 18 138/71 97 07/19/21 07:31 98.2 F 77 18 132/71 97 07/19/21 02:44 97.9 F 75 18 159/77 H 98 07/18/21 22:53 97.9 F 72 18 149/75 H 96 07/18/21 22:18 70 07/18/21 19:50 98.1 F 71 18 169/75 H 94 07/18/21 16:33 69 07/18/21 16:27 98.2 F 65 17 163/95 H 97 Recovery Score Activity: Moves 4 extremities Respiration: Deep Breath/Cough Circulation: +/-20% PreAnes Value Consciousness: Fully Awake Oxygen Saturation: > 92% On Room Air Post Anesthesia Score: 10 Discharge Sedation Level of Care: Fast Track Phase II Post Sedation Plan On clinical assessment, the patient appears to have tolerated the sedation without complications. Patient is recovering as anticipated. Patient will continue to be monitored by nursing and may be discharged when sedation discharge criteria are met per below protocol. Upon Completions of procedure up to 15 minutes continue every 5 minute vital signs and the P.A.R. score; then discharge to a Phase I or Fast Track to Phase II per the following guidelines: * Discharge Patient to appropriate Phase II area if PAR is 8 or greater or return to pre- procedure baseline. The post - procedure orders will be as directed. * If PAR score is less than 8 or not return to pre-procedure baseline then patient will follow Phase I monitoring till PAR is reached for Phase II. The Phase I may be done in procedure room or may call to secure a Phase I area. * If naloxone or flumazenil are used for reversal, hold in Phase I for continued monitoring from when last reversal dose was given for a minimum of 60 minutes or longer pending the nurse and/or physician discretion of patient condition before discharge to Phase II. Please call the Sedation Physician to re-evaluate and complete post-note for discharge to Phase II area. Do NOT discharge from procedure sedation or Phase 1 until post- sedation evaluation note is complete by procedure /sedation MD Sedation Discharge Instructions to be given to the patient at discharge to home.
--- NOTE | 2021-07-19 15:14 | Electrocardiogram Report ---
Test Reason : Blood Pressure : / mmHG Vent. Rate : 075 BPM Atrial Rate : 075 BPM P-R Int : 186 ms QRS Dur : 080 ms QT Int : 392 ms P-R-T Axes : 054 -03 048 degrees QTc Int : 437 ms Normal sinus rhythm Poor R wave progression, consider anterior TN vs. lead placement vs. LVH Abnormal ECG When compared with ECG of 18-JUL-2021 17:49, No significant change was found Confirmed by Julio Castillo ([id number]) on 07/19/2021 3:14:25 PM Referred By: REFERRED SELF Confirmed By:Julio Castillo
--- NOTE | 2021-07-19 15:27 | Cardiac Catheterization ---
[facility] Data: Uke Operator Cardiac Status Clinical evaluation leading to the procedure CAD Presenation: Non STEMI Anginal Classification: CCS IV Diagnostic Physicians Name: Pierre Queen MD Closure Device Recommendations: Medical Therapy and/or Counseling Cardiac Cath Procedure Full Procedure Date July 19, 2021 Pre-Procedure Diagnosis Pre-Procedure Diagnosis: CAD AUC Score AUC Score: 7 Post-Procedure Diagnosis Post-Procedure Diagnosis: Moderate CAD and Normal Intracardiac Pressures Procedure(s) Performed Procedure(s) Performed: Coronary Angiography, Left Heart Cath and IVUS Care Management Coordinator Pierre Queen MD Technical Publications Manager(s) Showers Estimated Blood Loss Estimated Blood Loss: 10 Medication(s) Medication(s): Fentanyl, Heparin, Lidocaine 1%, Nicardipine, Nitroglycerin and Versed Summary of Findings Indication: NSTEMI Access: 6 Fr right radial artery Catheters: EBU 3.5 guideEric Findings: LM -normal caliber, 20% distal stenosis LAD -medium caliber, calcified proximally, 50% proximal to mid stenosis at takeoff of first diagonal/first septal (concentric calcification, MLA 4.5 mm on IVUS). Distal vessel small and tapers prior to apex. Medium D2, D3 without significant disease. Circumflex -medium caliber, luminal irregularities. High OM1 with 30% ostial stenosis. RCA -large caliber, dominant, mid segment luminal irregularities, 40 to 50% mid PDA. LVEDP -1 IVUS of LAD procedure: -Left main cannulated with EBU 3.5 guide -BMW wire placed into distal LAD -[place] IVUS catheter placed across stenosis into mid LAD -IVUS pullback revealed moderate to severe calcification with moderate stenosis at bifurcation with diagonal and moderate, calcified stenosis (MLA 5.0 mm) at LAD ostium. Remainder of left main without significant disease. -Coronary angiography revealed no apparent complications post wire/catheter removal Arterial Closure: TR band Summary: 1. Moderate nonobstructive coronary artery disease -50% calcified, proximal to mid LAD stenosis (no acute disease on IVUS of LAD. IVUS also revealed moderate calcified ostial LAD disease). 40 to 50% mid right PDA 2. Normal intracardiac filling pressure Recommendations: No high risk CAD requiring revascularization. Suspect transient occlusive small vessel disease versus vasospasm. Recommend medical management of NSTEMI. Hemodynamics Rest Ao:: 133/69/96 Final Ao: 131/56/88 LV: 136/1 Recommendations Recommendations: Medical Therapy and/or Counseling Specimens Specimens: None Radiation Exposure (mGy) 426 Contrast (mls) 55 Anesthesia Moderate [id number] Procedural Complication(s) None Disposition PCU I attest to the content of the Intraoperative Record and any orders documented therein. Any exceptions are noted below. [facility] Card Cath Procedure Codes Cardiac Catheterization Procedure 1: Cardiovascular Cath Procedures: 44017 Coronaries and LHC (+/-LV) Therapeutic Services & Ancillary Proc Procedure 1: Cardiovascular Tx and Anc Procedures: 90815 IV Ultrasound (Coronary or Graft) Moderate Sedation Procedure 1: Sedation/Anesthesia: 82185 Mod Sedation by the same physician;Init15 Min Child Age 5 & Up PG Care Time/CCT Total # of Minutes Spent Total Time Spent with Patient: Total time spent is greater than 50% in coordination of care (as documented) at patient's floor/unit and/or counseling patient:
[2021-07-19] MEDS ORDERED: SODIUM CHLORIDE 0.9% 1000ML 1,000 ML IV SCH (15:30)
[2021-07-19 17:42] LABS: Partial Thromboplastin Ratio 2.8
[2021-07-19 17:46] LABS: Partial Thromboplastin Time 76.2 Seconds (21.0-31.0)
[2021-07-19] MEDS: LOSARTAN POTASSIUM 50 MG TAB PO SCH (20:15)
[2021-07-20 04:26] VITALS: TEMP 98.1
[2021-07-20 06:59] LABS: Basophils # (auto) 0.01 K/uL (0-0.2); Basophils % (auto) 0.2 %; Eosinophils # (auto) 0.09 K/uL (0-0.5); Eosinophils % (auto) 1.5 %; Hematocrit (blood only) 39.5 % (37-47); Hemoglobin 13.1 g/dL (12.0-16.0); Immature Granulocytes # (auto) 0.01 K/uL (0.00-0.02); Immature Granulocytes % (auto) 0.2 %; Lymphocytes # (auto) 1.45 K/uL (1.2-3.4); Lymphocytes % (auto) 23.6 %; Mean Corpuscular Hemoglobin 31.3 pg (25-34); Mean Corpuscular Hgb Conc 33.2 g/dL (32-36); Mean Corpuscular Volume 94.3 fL (80-100); Mean Platelet Volume 10.1 fL (7.4-10.4); Monocytes # (auto) 0.62 K/uL (0.11-0.59); Monocytes % (auto) 10.1 %; Neutrophils # (auto) 3.97 K/uL (1.4-6.5); Neutrophils % (auto) 64.4 %; Platelet Count 261 K/uL (130-400); RDW Coefficient of Variation 12.4 % (11.5-14.5); RDW Standard Deviation 42.7 fL (36.4-46.3); Red Blood Count 4.19 M/uL (4.2-5.4); White Blood Count 6.15 K/uL (4.8-10.8)
[2021-07-20 07:22] LABS: BUN Creatinine Ratio 22.4 (10-20); Calcium 8.9 mg/dl (8.5-10.1); Creatinine Clr Calc Pharmacy 45.4 ml/min; Est GFR (Non-African American) 64.7 ml/min; Magnesium 1.9 mg/dl (1.7-2.4); Partial Thromboplastin Time 26.5 Seconds (21.0-31.0); Potassium 4.4 mmol/L (3.5-5.1)
[2021-07-20] MEDS: CALCIUM 600MG + VIT D 400 IU TAB PO SCH (08:00)
[2021-07-20] MEDS: ASPIRIN 81 MG ECTAB PO SCH (08:00)
[2021-07-20] MEDS: METOPROLOL TARTRATE 25 MG TAB PO SCH (08:00)
[2021-07-20] MEDS: ANASTROZOLE 1 MG TAB PO SCH (08:00)
[2021-07-20 08:21] VITALS: BP 119/58; O2SAT 94
--- NOTE | 2021-07-20 09:49 | Cardiology Progress Note ---
Date of Service July 20, 2021 Assessment & Plan (1) NSTEMI (non-ST elevated myocardial infarction): (2) Hypertension: (3) Hypercholesterolemia: Plan: Cardiac catheterization showed only borderline/nonobstructive CAD (50% calcified proximal to mid LAD stenosis and 40-50% PDA stenosis). Continue aspirin, given possibility of transient occlusive small vessel disease would also add clopidogrel 75 mg daily (no need for loading dose) for next 6 to 12 months. Increase metoprolol to 50 mg daily. Continue losartan but decrease dose to 25 mg daily (to avoid hypotension as metoprolol is increased). Initiate atorvastatin 40 mg daily for CAD. Okay for discharge home with follow-up in the office in 2 to 4 weeks. Avoid heavy physical activity until she is seen and evaluated for possible cardiac rehab. Admission and Anticipated Discharge Date Admission Date: July 18, 2021 Subjective Patient feels well, no chest discomfort, dyspnea, palpitations, or other complaints. Telemetry showed sinus rhythm in the 70s with no significant ectopy or dysrhythmias. Physical Exam Physical Exam: No distress. BP normotensive. Pulse 72 bpm and regular. Skin: no ecchymoses or generalized lesions. HEENT: unremarkable. Neck: no JVD or carotid bruits. Lungs: clear. Cardiac: regular rhythm, normal S1 and S2, no murmur or gallop. Abdomen: benign. Extremities: no edema, brisk radial and posterior tibial pulses. Neurologic: normal affect, nonfocal. Results & Data ([facility]) Vital Signs (Past 12 Hours) Vital Signs Temp Pulse Pulse Resp BP Pulse Ox 07/20/21 08:19 98.1 F 72 16 119/58 L 94 07/20/21 04:24 98.1 F 70 13 129/71 95 07/20/21 00:16 71 07/19/21 22:41 97.5 F L 73 16 139/75 95 Laboratory Results Normal electrolytes, BUN 19, creatinine 0.85. PG Care Time/CCT Total # of Minutes Spent Total Time Spent with Patient: Total time spent is greater than 50% in coordination of care (as documented) at patient's floor/unit and/or counseling patient: Coding Level of Care Code 58497 Subseq Hosp Care Lvl 3 Diagnoses NSTEMI (non-ST elevated myocardial infarction) I21.4 Hypertension I10 Hypertension type: unspecified Hypercholesterolemia E78.00 (1) Hypertension Hypertension type: unspecified Qualified Code(s): I10 - Essential (primary) hypertension
--- NOTE | 2021-07-20 12:09 | Discharge Summary ---
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 Patient comest to the EMD today for complaints of left arm tingling and pain across her left chest. This woke her up this morning at around 0530. Patient states that she thought that this was secondary to her sleeping on her arm, so she waited for about 30 minutes and this did not resolve. She then called her daughter and they came to the EMD. The pain started to resolve around 0800 when she got here. The pain was along her left chest 3-5 intercostal along the front chest wall described as "just a pain" this was associated with nausea in the morning and left arm tingling , this was NOT associated with any activity, or shortness of breath, chills fevers, vomiting or radiation in to her neck, jaw, or back. 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 She was also mowing grass this weekend (on Sunday) with push mower. She denies any chest pain or dyspnea at that time, but was fatigued afterwards. In the EMD the patient was noted to be hypertensive (she did not take her metoprolol this mornint). She had ECG performed, CXR, Routine labs to include HScTNI. She was given 324 mg ASA, and NTG, as well as her Metoprolol. Her HScTNI was negative x1 at 7:55 this morning. Repeat is pending, this repeat would be approx 6 hours from onset of discomfort. Her chest pain appears to be reproducible along the chest wall, and she reports this is the same pain that she had this morning. Will observe patient overnight, with trending of her BPs as she remains >160/80, and draw another HScTNI at 1600. She has no other neurological deficits or drift to associate with her left arm tinging. COVID test on admission is: NEGATIVE Principal Diagnosis NSTEMI Discharge Exam Constitutional WD/WN, vitals as above Eyes + anicteric sclerae Neck trachea midline, no thyromegaly Respiratory normal respiratory effort, lungs clear to auscultation Cardiovascular RRR, no murmur, no edema Chest (Breasts) Chest: normal inspection of chest Gastrointestinal (Abdomen) normal bowel sounds, soft, nontender, no hepatosplenomegaly Musculoskeletal Extremities: extremities normal to inspection; no cyanosis and no clubbing right wrist with radial dressing in place, no hematoma Skin no rashes, warm and dry Neurologic moves all extremities and awake; no focal motor deficits Psychiatric A+Ox3, euthymic affect Lymphatic no lymphedema Discharge Data Allergies Allergy/AdvReac Type Severity Reaction Status Date / Time No Known Allergies Allergy Verified 12/15/20 07:37 Consultations 07/18/21 09:46 ED Decision to Admit Stat 07/18/21 17:36 Consult Cardiology Routine Procedures Performed Operation Date: 07/19/21 12:00 Actual Procedures p Cath, Left with Cors and Vent - Chip Queen MD s Cineradiography w/Routine Exam - Chip Queen MD s IVUS Coronary Single Vessel - Chip Queen MD Ordered Studies 07/19/21 12:31 CL Cath Imgs for PACS use only Routine 07/19/21 14:43 CL IVUS Coronary Single Vessel Routine ECHO Hospital Course (1) NSTEMI (non-ST elevated myocardial infarction): Presented with Chest pain at rest that awakened her from sleep - CRP and ESR normal - ECG without ST elevation/depression - CXR without acute pulmonary or musculoskeletal component - Risk factors- age, HTN, HLD - Trended HScTNI second high-sensitivity troponin went from 5.7-37.3 and then up further to 441 peak c/w NSTEMI----> heparin gtt was started after admission and then dcd for cath - ECHO to evaluate for any RWMA was normal -Appreciate Cardio consult Cath showed borderline/nonobstructive CAD (50% calcified proximal to mid LAD stenosis and 40-50% PDA stenosis) Doing very well, no further chest pain -lipids here are excellent but has CAD, will need statin high intensity-start atorva 40mg daily -Continue aspirin and add on Plavix 75mg po daily -increase metoprolol to 50mg and change to XL -decrease losartan to 25mg daily to prevent hypotension withincreased dose metoprolol -f/u Cardiology in 2-4 weeks -light activity until cleared by Cardiology (2) Hypertension: HTN -BPs controlled - She does not check her BP at home regularly- when she does she has varying results of 120-150s -continue Metoprolol at higher dose, losartan (3) Hypercholesterolemia: Lipids here are excellent - currently on no therapy but needs statin due to CAD on cath (4) Breast cancer: Diagnosed 2016:- poorly differentiated - (+)ER/AR(-) treated with RTX only on the right side, and is on Anastrazole currently - continue anastrazole - further monitoring and management per outpatient team DVT proph-SCDs, heparin gtt Dispo-dc to home Discussed case with Dr. Castillo Total Time Total Time Spent Total Time Spent (In Minutes): 35 min Total Time Includes: Examination of the Patient, Discharge Planning, Medication Reconciliation and Communication With Other Providers Discharge Plan Discharge Items Reason For Visit: CHEST PAIN Discharge Diagnosis: NSTEMI Condition on Discharge: Good Activity: As commented below Driving/Machine Use: Resume 3 days after discharge Non-emergency contact: Primary Care Provider and Senior Storage Engineer Call non-emergency contact if: you have any medication questions, your symptoms worsen and your pain is not controlled Follow-up/Referrals: Julio Castillo MD [Physician] - (Follow up within 2-4 weeks) Delaney Kaplan PA-C [Primary Care Provider] - (Follow up within 1-2 weeks) Diet: Heart Healthy Addtl Attending Provider Instructions: You will be started on new medications due to your mild heart attack. They are aspirin and Plavix (both blood thinners), atorvastatin to help reduce risk of heart attack, and your metoprolol dose was changed. Your metoprolol is being changed to a long acting form so please do NOT use your old prescription. Your losartan dose was cut in half. Home Care: * Take your medications exactly as directed. Don't skip doses. * Remember that recovery after a heart attack takes time. Plan to rest for at lease 4-8 weeks while you recover. Then return to normal activity when your doctor says it's okay. * Ask your doctor about joining a heart rehabilitation program. * Tell your doctor if you are feeling depressed. Feelings of sadness are common after a heart attack, but it is important that you speak to someone if you are feeling overwhelmed by these feelings. * If you are having chest pain, call 911 for an ambulance. Do NOT drive yourself to the hospital. * Ask your family members to learn CPR. * Learn to take your own blood pressure and pulse. Keep a record of your results. Ask your doctor when you should seek emergency medical attention. He or she will tell you which blood pressure reading is dangerous. Lifestyle Changes: * Maintain a healthy weight. Get help to lose any extra pounds. * Cut back on salt. * Limit canned, dried, packaged, and fast foods. * Don't add salt to your food. * Season foods with herbs instead of salt when you cook. * Break the smoking habit. Enroll in a stop-smoking program to improve your chances of success. * Limit fatty foods. * Ask your doctor about having your lipid levels checked regularly. * Build up your activity according to your doctor's recommendation. * Ask your doctor when it's okay to resume sexual activity. * Tell your doctor about any erectile dysfunction (ED) medication you are taking. Some ED medications are not safe if you take certain heart medications. * Try to manage stress. Follow Up: It is important for you to keep your follow up appointments with your medical provider. ACTIVITY RECOMMENDATIONS: Excess manipulation of the wrist should be avoided for the next 24-48 hours. * No lifting over 2 pounds (approximately a 1/2 gallon of milk) with the utilized arm for 24 hours. * No strenuous activity such as bowling or tennis for 3 days. * Keep the site of the procedure covered with a bandage for 24 hours. *You may shower the day after the procedure. Do not take a tub bath or submerge the puncture site in water for the next 3 days. *Do not operate any motorized equipment for 3 days. SPECIAL CARE INSTRUCTIONS: The site may be slightly bruised and sore following your procedure. Should any of the following occur, contact the Dr. who performed your procedure. 1. Redness/inflammation, swelling, chills, or fever, or colored drainage at procedure site within 3-7 days after your procedure. 2. Coldness, discoloration, ongoing numbness, severe pain, or swelling. Expect mild tingling of hand and tenderness at the puncture site for up to three days. If this persists beyond three days, or other symptoms develop, notify the Dr. who performed your procedure. BLEEDING: If the procedure site on your wrist begins to bleed, do not panic 1. Place 1 or 2 fingers firmly just slightly above the insertion site to stop the bleeding. You may be able to feel your pulse as you hold pressure. 2. Lift your finger after 5 minutes to see if the bleeding has stopped. 3. Once the bleeding has stopped, gently wipe the wrist area clean with a bandage. * If the bleeding from your wrist does not stop after 10 minutes, or if there is a large amount of bleeding or spurting, call 911 (do not drive yourself to the hospital). SKIN IRRITATION: * You may experience some redness and/or swelling in the area where radiation was administered. If any skin irritation occurs, please contact your family physician. FOLLOW UP VISIT: Keep any scheduled doctor appointments. Pending Studies at Discharge: No Stand-Alone Forms: My [facility] Medications and DC Order Prescriptions: New clopidogrel 75 mg Tablet 75 mg PO QAM Qty: 30 RF: 0 atorvastatin 40 mg Tablet 40 mg PO QAM Qty: 30 RF: 0 metoprolol succinate 50 mg Tablet Extended Release 24 Hr 50 mg PO QAM Qty: 30 RF: 0 nitroglycerin [Nitrostat] 0.4 mg Tablet, Sublingual 0.4 mg sublingual UD PRN (Reason: chest pain) Qty: 10 RF: 0 aspirin 81 mg Tablet,Delayed Release (Dr/Ec) 81 mg PO QAM Qty: 30 RF: 0 Continued anastrozole 1 mg tablet 1 mg PO DAILY RF: 0 calcium carbonate-vitamin D3 600 mg(1,500mg) -200 unit tablet 1 tab PO DAILY RF: 0 multivitamin [Multiple Vitamins] Tablet 1 tab PO QAM RF: 0 Changed losartan 50 mg tablet 25 mg PO DAILY Qty: 90 RF: 3 Discontinued metoprolol tartrate 25 mg tablet 25 mg PO DAILY Qty: 90 RF: 3 Admission Data Admit Date/Time: 07/18/21 10:32 Attending Provider: Shanika Stevenson Admit Provider: Jimi Roberts Primary Care Provider: Delaney Kaplan Other Providers: Jimi Roberts ; Magdy Singleton Coding Level of Care Code D/C DAY MANAGEMENT >30 MINS Diagnoses NSTEMI (non-ST elevated myocardial infarction) I21.4 Hypertension I10 Hypercholesterolemia E78.00 Breast cancer C50.919
[2021-07-20] MEDS ORDERED: CLOPIDOGREL BISULFATE 75 MG TAB PO SCH (12:30)
[2021-07-20] MEDS ORDERED: ATORVASTATIN 40 MG TAB PO SCH (12:30)
[2021-07-20 12:36] VITALS: PULSE 79
[2021-07-20] MEDS ORDERED: LOSARTAN POTASSIUM 25 MG TAB PO SCH (21:00)
[2021-07-21] MEDS ORDERED: METOPROLOL SUCC 50MG EXT REL TAB PO SCH (09:00)
== END 2021-07-20 14:16 | disposition home or self-care (01) ==
LOC: EDINP 07:03 → ED 07:03 → SUATTDRO 10:32 → 2N 10:55 → 2S 07-19 15:05
DX: I21.4 Non-ST elevation (NSTEMI) myocardial infarction; I10 Essential (primary) hypertension; I25.84 Coronary atherosclerosis due to calcified coronary lesion; Z79.899 Other long term (current) drug therapy; E78.00 Pure hypercholesterolemia, unspecified; R77.8 Other specified abnormalities of plasma proteins; I25.10 Atherosclerotic heart disease of native coronary artery without angina pectoris; C50.919 Malignant neoplasm of unspecified site of unspecified female breast